=== PATIENT | male | born 1965 | race Caucasian/White ===

== ENCOUNTER 2016-09-29 01:22 | Emergency (ER) | payer OTHER ==
[2016-09-29 01:29] VITALS: BP 175/86; PULSE 89; RESP 18; TEMP 98.5
--- NOTE | 2016-09-29 01:32 | ED ---
ENT HPI - General Chief complaint: Dental/Oral Stated complaint: dental pain Source: patient, RN notes reviewed, old records reviewed Mode of arrival: ambulatory Limitations: no limitations - History of Present Illness Initial comments: Is a 51-year-old male presents emergency Department chief complaint of 19 pain for the past few weeks. Patient reports that his tooth is very loose. Patient reports that he has to see a dentist but is only to be mostly 4-6 weeks. Patient denies any difficulty opening her jaw. Denies any fevers. Patient reports is currently on antibiotics.Patient denies any recent fever, chills, shortness of breath, chest pain, back pain, abdominal pain, nausea vomiting, numbness or tingling, dysuria or hematuria, constipation or diarrhea, headaches or visual changes, or any other current symptoms - Related Data Home Medications Medication Instructions Recorded Confirmed Carisoprodol [Soma] 350 mg PO DAILY 05/04/15 05/04/15 Lisinopril [Zestril] 10 mg PO DAILY 05/04/15 05/04/15 Loratadine [Claritin] 10 mg PO DAILY 05/04/15 05/04/15 Methylphenidate HCl [Ritalin] 20 mg PO DAILY 05/04/15 05/04/15 Previous Rx's Medication Instructions Recorded Hydrocodone/Acetaminophen [Max 1 each PO Q6HR PRN #20 tab 05/04/15 5-325] Orphenadrine [Norflex] 100 mg PO Q12H #10 tablet.er 05/04/15 HYDROcodone/APAP 5-325MG [Max 1 tab PO Q6HR PRN #20 tab 09/29/16 5-325] Allergies Allergy/AdvReac Type Severity Reaction Status Date / Time No Known Allergies Allergy Verified 09/29/16 01:29 Review of Systems ROS Statement: Those systems with pertinent positive or pertinent negative responses have been documented in the HPI. ROS Other: All systems not noted in ROS Statement are negative. Past Medical History Past Medical History: Hypertension Additional Past Medical History / Comment(s): hypercholestremia History of Any Multi-Drug Resistant Organisms: None Reported Additional Past Surgical History / Comment(s): neck surgery, finger surgery Past Psychological History: No Psychological Hx Reported Smoking Status: Current some day smoker Past Alcohol Use History: Occasional Past Drug Use History: Marijuana General Exam - General Exam Comments Initial Comments: Well-appearing 51-year-old male. No acute distress. Limitations: no limitations General appearance: alert, in no apparent distress Head exam: Present: atraumatic, normocephalic, normal inspection Eye exam: Present: normal appearance, PERRL, EOMI. Absent: scleral icterus, conjunctival injection, periorbital swelling ENT exam: Present: normal exam, mucous membranes moist. Absent: normal oropharynx (Patient is significant dental caries. Evidence of loose tooth #19. Evidence of multiple carries around tooth 19. No evidence of abscess at this time.) Neck exam: Present: normal inspection. Absent: tenderness, meningismus, lymphadenopathy Respiratory exam: Present: normal lung sounds bilaterally. Absent: respiratory distress, wheezes, rales, rhonchi, stridor Cardiovascular Exam: Present: regular rate, normal rhythm, normal heart sounds. Absent: systolic murmur, diastolic murmur, rubs, gallop, clicks GI/Abdominal exam: Present: soft, normal bowel sounds. Absent: distended, tenderness, guarding, rebound, rigid Extremities exam: Present: normal inspection, full ROM, normal capillary refill. Absent: tenderness, pedal edema, joint swelling, calf tenderness Back exam: Present: normal inspection Neurological exam: Present: alert, oriented X3, CN II-XII intact Psychiatric exam: Present: normal affect, normal mood Skin exam: Present: warm, dry, intact, normal color. Absent: rash Course Vital Signs 09/29/16 01:26 Temperature 98.5 F Pulse Rate 89 Respiratory 18 Rate Blood Pressure 175/86 O2 Sat by Pulse 97 Oximetry Procedures - Nerve Block Local Anesthetic Used: Marcaine 0.5% Amount of anesthesia used: 5 Side: left Intraoral Nerve Block: inferior alveolar Procedure Successful: Yes Complications: none Patient Tolerated Procedure: well, no complications Medical Decision Making - Medical Decision Making Is a 51-year-old male presents emergency Department chief complaint of 19 pain for the past few weeks. Patient reports that his tooth is very loose. Patient reports that he has to see a dentist but is only to be mostly 4-6 weeks. Patient denies any difficulty opening her jaw. Denies any fevers. Patient was given an inferior alveolar block. Patient tolerated procedure well. Patient has no sign of abscess was high. He is currently on antibiotics. Discuss close follow-up with his dentist and patient was given a referral for other dental clinics. Patient be discharged with pain medication. Disposition Clinical Impression: Pain, dental Disposition: HOME SELF-CARE Condition: Good Instructions: Toothache (ED) Additional Instructions: [facility] [address] [place] [address] [phone] (existing clients only) For new clients: [phone] 1st consult: $50 (includes Xrays) Usually 30% less then private dentist for visits after. [employer] Have to pay $50 for Xrays anmd rest is covered. [phone] Prescriptions: HYDROcodone/APAP 5-325MG [Max 5-325] 1 tab PO Q6HR PRN #20 tab PRN Reason: Pain Referrals: Vincent Jenkins DO [Primary Care Provider] - 1-2 days Time of Disposition: 01:44
[2016-09-29] MEDS ORDERED: BUPIVACAINE (PF) 0.5% 30 ML VIAL SQ STA (01:40)
== END 2016-09-29 02:00 | disposition home or self-care (01) ==
LOC: EC 01:22
DX: K08.89 Other specified disorders of teeth and supporting structures (principal); I10 Essential (primary) hypertension; E78.00 Pure hypercholesterolemia, unspecified; F17.200 Nicotine dependence, unspecified, uncomplicated; Z79.899 Other long term (current) drug therapy
CPT/HCPCS: 64400; 99283

== ENCOUNTER 2017-04-13 14:37 | Emergency (ER) | payer OTHER ==
[2017-04-13 14:51] VITALS: BP 141/84; PULSE 69; RESP 18; TEMP 98.8
--- NOTE | 2017-04-13 15:55 | ED ---
Eye Problem HPI - General Chief complaint: Eye Problems Stated complaint: Eye issues Time Seen by Provider: 04/13/17 15:17 Source: patient Mode of arrival: ambulatory Limitations: no limitations - History of Present Illness Initial comments: 51-year-old male patient presents to the emergency department today for evaluation of a lesion to the right lower eyelid. Patient states that the site has been inflamed for the last month. He states that he has been treated I his doctor both with and topical ointment and an eye drop without relief of symptoms. He states the area seems to be increasing in size, he states it feels like he has something in his eye. He denies any drainage from the site. Denies any fever or chills. States that he does have a little bit of blurred vision however hasn't been wearing his new glasses. He denies any history of similar symptoms. Patient denies any recent rash, shortness breath, chest pain, abdominal pain, nausea, vomiting, diarrhea, constipation, back pain, numbness, tingling, dizziness, weakness, hematuria, dysuria, urinary urgency, urinary frequency, headache, visual changes, or any other complaints. - Related Data Home Medications Medication Instructions Recorded Confirmed Unable To Assess [Unable to Assess] 04/13/17 04/13/17 Allergies Allergy/AdvReac Type Severity Reaction Status Date / Time No Known Allergies Allergy Verified 04/13/17 14:51 Review of Systems ROS Statement: Those systems with pertinent positive or pertinent negative responses have been documented in the HPI. ROS Other: All systems not noted in ROS Statement are negative. Past Medical History Past Medical History: Hypertension Additional Past Medical History / Comment(s): hypercholestremia History of Any Multi-Drug Resistant Organisms: None Reported Past Surgical History: Hernia Repair Additional Past Surgical History / Comment(s): neck surgery, finger surgery Past Psychological History: No Psychological Hx Reported Smoking Status: Current some day smoker Past Alcohol Use History: Occasional Past Drug Use History: Marijuana General Exam Limitations: no limitations General appearance: alert, in no apparent distress, other (This is a well- developed, well-nourished adult male patient in no acute distress. Vital signs upon presentation were temperature 98.8F, pulse 69, respirations 18, blood pressure 141/84, pulse ox 94% on room air.) Eye exam: Present: PERRL, EOMI, other (Right lower lid chalazion, evidence both of internal and external swelling. Orbit is clear with no conjunctival injection. There is no drainage noted from the site. No evidence of periorbital cellulitis.). Absent: normal appearance, scleral icterus, conjunctival injection, nystagmus, periorbital swelling ENT exam: Present: normal exam, normal oropharynx, mucous membranes moist Respiratory exam: Present: normal lung sounds bilaterally. Absent: respiratory distress, wheezes, rales, rhonchi, stridor Cardiovascular Exam: Present: regular rate, normal rhythm, normal heart sounds. Absent: systolic murmur, diastolic murmur, rubs, gallop, clicks Neurological exam: Present: alert, oriented X3, CN II-XII intact Psychiatric exam: Present: normal affect, normal mood Skin exam: Present: warm, dry, intact, normal color. Absent: rash Course Vital Signs 04/13/17 14:49 Temperature 98.8 F Pulse Rate 69 Respiratory 18 Rate Blood Pressure 141/84 O2 Sat by Pulse 94 L Oximetry Medical Decision Making - Medical Decision Making 51-year-old male patient presented to the emergency department today for evaluation of a lesion to the right lower eyelid. Physical examination did reveal a chalazion to the right lower lid. There is evidence of internal and external swelling. No drainage was noted from the site. Patient denied any fevers or chills. No evidence of periorbital cellulitis. Patient be discharged home to follow-up with ophthalmology for further evaluation. He is instructed to apply warm compresses to the site several times daily. He is instructed to continue medications given by his primary care physician. He is instructed to return here immediately for any new, worsening, or concerning symptoms. He verbalizes understanding and agrees with this plan. Disposition Clinical Impression: Chalazion right lower eyelid Disposition: HOME SELF-CARE Condition: Good Instructions: Chalazion (ED) Additional Instructions: Warm compresses several times per day. Continue medications as prescribed by her physician. Follow-up with ophthalmology as soon as possible. Return here immediately for any new, worsening, or concerning symptoms. Referrals: Vincent Jenkins DO [Primary Care Provider] - 1-2 days Mario Gaffney MD [STAFF PHYSICIAN] - 1-2 days Time of Disposition: 15:54
== END 2017-04-13 16:00 | disposition home or self-care (01) ==
LOC: EC 14:37
DX: H00.12 Chalazion right lower eyelid (principal); F17.200 Nicotine dependence, unspecified, uncomplicated
CPT/HCPCS: 99283

== ENCOUNTER 2019-01-05 21:42 | Emergency (ER) | payer OTHER ==
[2019-01-05] MEDS ORDERED: HYDROcodone/APAP 10-325MG 1 EACH TAB PO ONE (22:45)
--- NOTE | 2019-01-05 23:06 | XR ---
EXAMINATION TYPE: XR ankle complete LT DATE OF EXAM: 01/05/2019 COMPARISON: NONE HISTORY: Ankle pain and swelling TECHNIQUE: 3 views FINDINGS: There are plantar and Achilles calcaneal spurs. Ankle mortise is anatomic. There is soft ti ssue swelling around the ankle joint. IMPRESSION: Soft tissue mild swelling. No fracture seen. Calcaneal spurring
--- NOTE | 2019-01-05 23:21 | ED ---
Lower Extremity Injury HPI - General Chief Complaint: Extremity Injury, Lower Stated Complaint: Ankle injury Time Seen by Provider: 01/05/19 22:23 Source: patient Mode of arrival: wheelchair Limitations: no limitations - History of Present Illness Initial Comments: 53-year-old male with history of previous left ankle fracture 20 years ago presenting for evaluation of left ankle pain. Patient states that since he fractured his ankle and was not compliant with his cath 20 years ago he states he has had on-and-off ankle pain that occurs periodically. Patient states the past 2-3 days he has had increasing left ankle pain A note some swelling over the lateral malleolus. Patient states he is tenderness of the ankle joint denies any redness. Patient denies a fever or flulike symptoms. Patient states the pain increases when he walks denies radiation of the pain. Patient denies any calf pain history of DVT or pulmonary embolism. Denies chest pain, denies SOB. Patient denies any known cancer, exogenous hormone use, he denies any recent fractures or direct trauma injury to the ankle. Remaining review system negative. Upon arrival patient appears well no signs of acute distress. - Related Data Home Medications Medication Instructions Recorded Confirmed Unable To Assess [Unable to Assess] 04/13/17 04/13/17 Allergies Allergy/AdvReac Type Severity Reaction Status Date / Time No Known Allergies Allergy Verified 01/05/19 22:21 Review of Systems ROS Statement: Those systems with pertinent positive or pertinent negative responses have been documented in the HPI. ROS Other: All systems not noted in ROS Statement are negative. Past Medical History Past Medical History: Hypertension Additional Past Medical History / Comment(s): hypercholestremia History of Any Multi-Drug Resistant Organisms: None Reported Past Surgical History: Hernia Repair Additional Past Surgical History / Comment(s): neck surgery, finger surgery Past Psychological History: No Psychological Hx Reported Smoking Status: Current some day smoker Past Alcohol Use History: Occasional Past Drug Use History: Marijuana General Exam - General Exam Comments Initial Comments: General: The patient is awake and alert, in no distress, and does not appear acutely ill. Eye: Pupils are equal, round and reactive to light, extra-ocular movements are intact. No nystagmus. There is normal conjunctiva bilaterally. No signs of icterus. Cardiovascular: There is a regular rate and rhythm. No murmur, rub or gallop is appreciated. Respiratory: Lungs are clear to auscultation, respirations are non-labored, breath sounds are equal. No wheezes, stridor, rales, or rhonchi. Musculoskeletal: Normal ROM, with tenderness wtih all ranges of motion of the left ankle. Strength 5/5. Sensation intact. DP pulses equal bilaterally 2+. Neurological: A&O x 3. CN II-XII intact grossly, There are no obvious motor or sensory deficits. Coordination appears grossly intact. Speech is normal. Skin: Skin is warm and dry and no rashes or lesions are noted. Upon inspection of the ankles bilaterally or soft tissue swelling noticed over the lateral malleolus. Feet are warm bilaterally with equal pulses. Capillary refill less than 3 seconds. Negative Homans bilaterally no pedal patient Achilles of the posterior calf. No calf swelling is noted no pitting edema. No redness or warmth to palpation of the ankle mortise. Diffuse tenderness over the ankle mortise Psychiatric: Cooperative, appropriate mood & affect, normal judgment. Limitations: no limitations Course Vital Signs 01/05/19 01/06/19 01/06/19 22: 00:15 02:45 Temperature 98.1 F 98.2 F 98.6 F Pulse Rate 94 85 87 Respiratory 16 18 18 Rate Blood Pressure 136/91 129/87 142/95 O2 Sat by Pulse 97 97 96 Oximetry Medical Decision Making - Medical Decision Making 53-year-old male with history of previous left ankle fracture presenting for swelling and pain in the left ankle. Increasing with ambulation. No redness no clicks symptoms. Afebrile. D-dimer was mildly elevated cannot rule out DVT therefore ultrasound was obtained revealing no deep venous thrombosis. Patient did not have calf pain or swelling. Swelling localized to the lateral malleolus and ankle mortise. Patient does have evidence of spur on plain films no evidence of acute process. At this time I do feel patient is stable for d/c with return parameters as discussed PCP f/u. If symptoms persist I recommended orthopedic evaluation. RICE instruction and importance of rest and elevation for the next 2-3 days were discussed with patient. Patient case discussed with Joseph Garcia and patient was discharged appearing well. - Lab Data Lab Results 01/05/19 Range/Units 23:10 D-Dimer 0.54 (<0.60) mg/L FEU Disposition Clinical Impression: Left ankle pain, Left ankle swelling Disposition: HOME SELF-CARE Condition: Good Instructions (If sedation given, give patient instructions): R.I.C.E. Treatment (ED) Additional Instructions: Please use medication as discussed. Please follow-up with family doctor in the next 2 days and orthopedic surgery in next week. Please return to emergency room if the symptoms increase or worsen or for any other concerns. Is patient prescribed a controlled substance at d/c from ED?: No Referrals: Vincent Jenkins DO [Primary Care Provider] - 1-2 days Raciel Prather MD [Medical Doctor] - 1-2 days Time of Disposition: 02:42
[2019-01-06 00:16] VITALS: RESP 18
[2019-01-06] MEDS ORDERED: KETOROLAC 30 MG/ML 1 ML VIAL IVP STA (01:16)
--- NOTE | 2019-01-06 02:36 | US ---
EXAM: US Duplex Left Lower Extremity Veins CLINICAL HISTORY: ITS.REASON US Reason: elevated dimer. Lower extremity swelling. TECHNIQUE: Real-time duplex ultrasound scan of the left lower extremity veins integrating B-mode two-dimensional vascular structure, Doppler spectral analysis, color flow Doppler imaging and compression. COMPARISON: None. FINDINGS: Deep veins: Imaging of the left lower extremity deep venous system reveals no deep venous thromboses including the left common femoral vein, left superficial femoral vein, the left popliteal vein, and the proximal calf veins. Superficial veins: The greater saphenous vein, and the lesser saphenous vein were also imaged and were patent. No thrombus in the visualized great saphenous vein. Soft tissues: Soft tissues are grossly unremarkable. No popliteal cyst. IMPRESSION: No deep venous thrombosis left lower extremity.
[2019-01-06 03:00] VITALS: BP 142/95; PULSE 87; TEMP 98.6
== END 2019-01-06 02:45 | disposition home or self-care (01) ==
LOC: EC 21:42
DX: M25.572 Pain in left ankle and joints of left foot (principal); M79.89 Other specified soft tissue disorders; R79.1 Abnormal coagulation profile; S99.912A Unspecified injury of left ankle, initial encounter; I10 Essential (primary) hypertension; F17.200 Nicotine dependence, unspecified, uncomplicated; Z87.81 Personal history of (healed) traumatic fracture; X58.XXXA Exposure to other specified factors, initial encounter
CPT/HCPCS: 36415; 85379; 73610; 93971; 96374; 99284; J1885

== ENCOUNTER 2019-03-01 20:27 | Emergency (ER) | payer OTHER ==
[2019-03-01] MEDS ORDERED: HYDROcodone/APAP 5-325MG 1 EACH TAB PO STA (20:50)
[2019-03-01] MEDS ORDERED: MECLIZINE 12.5 MG TAB PO STA (20:50)
--- NOTE | 2019-03-01 21:05 | ED ---
General Adult HPI - General Chief complaint: Head Injury Stated complaint: Head injury Time Seen by Provider: 03/01/19 20:35 Source: patient, RN notes reviewed Mode of arrival: ambulatory Limitations: no limitations - History of Present Illness Initial comments: 53-year-old male with a past medical history of hypertension presents to the emergency department for a chief complaint of head injury. Patient states that about 5 hours prior to arrival he was standing beside a crutch door. States that they cable snapped and the crotch door started to fall and a bracket hit him on the right side of the forehead. States he has had a headache and dizziness since that time. States his vision is a little blurry out of both eyes. Denies any other worsening symptoms. Denies neck pain.Patient has no other complaints at this time including shortness of breath, chest pain, abdominal pain, nausea or vomiting. - Related Data Home Medications Medication Instructions Recorded Confirmed Unable To Assess [Unable to Assess] 04/13/17 04/13/17 Allergies Allergy/AdvReac Type Severity Reaction Status Date / Time No Known Allergies Allergy Verified 03/01/19 20:33 Review of Systems ROS Statement: Those systems with pertinent positive or pertinent negative responses have been documented in the HPI. ROS Other: All systems not noted in ROS Statement are negative. Past Medical History Past Medical History: Hypertension Additional Past Medical History / Comment(s): hypercholestremia History of Any Multi-Drug Resistant Organisms: None Reported Past Surgical History: Hernia Repair Additional Past Surgical History / Comment(s): neck surgery, finger surgery Past Psychological History: No Psychological Hx Reported Smoking Status: Current some day smoker Past Alcohol Use History: Occasional Past Drug Use History: Marijuana General Exam Limitations: no limitations General appearance: alert, in no apparent distress Head exam: Present: normocephalic, normal inspection. Absent: atraumatic (Small contusion noted to the right frontal bone) Eye exam: Present: normal appearance, PERRL, EOMI. Absent: scleral icterus, conjunctival injection, periorbital swelling ENT exam: Present: normal exam, normal oropharynx, mucous membranes moist, TM's normal bilaterally (No evidence for hemotympanum), normal external ear exam Neck exam: Present: normal inspection, full ROM. Absent: tenderness, meningismus, lymphadenopathy Respiratory exam: Present: normal lung sounds bilaterally. Absent: respiratory distress, wheezes, rales, rhonchi, stridor Cardiovascular Exam: Present: regular rate, normal rhythm, normal heart sounds. Absent: systolic murmur, diastolic murmur, rubs, gallop, clicks Neurological exam: Present: alert, oriented X3, CN II-XII intact, normal gait, other (GCS 15) Course Vital Signs 03/01/19 20:28 Temperature 98.4 F Pulse Rate 90 Respiratory 16 Rate Blood Pressure 133/74 O2 Sat by Pulse 95 Oximetry Medical Decision Making - Medical Decision Making CT brain is negative. Previous cervical spine fusion surgery as noted in the CT C-spine however no acute abnormality. Patient likely has a concussion given his headache dizziness and slight blurry vision. Recommended no driving until he follows up with primary care. Recommended Tylenol for pain. Recommended he return to the emergency department if he has any worsening symptoms. Disposition Clinical Impression: Concussion Disposition: HOME SELF-CARE Condition: Good Instructions (If sedation given, give patient instructions): Concussion (ED) Additional Instructions: Please take Tylenol for pain. Do not drive or operate machinery until clearance by primary care. Follow up on Sunday. Try to rest and avoid any other injuries to the head. Return to the emergency department if you have any worsening symptoms. Is patient prescribed a controlled substance at d/c from ED?: No Referrals: Vincent Jenkins DO [Primary Care Provider] - 1-2 days Time of Disposition: 21:41
--- NOTE | 2019-03-01 21:12 | CT ---
EXAMINATION TYPE: CT brain velasquez reynaga DATE OF EXAM: 03/01/2019 COMPARISON: None HISTORY: Head injury, right frontal/temporal. CT DLP: 1536.8 mGycm Automated exposure control for dose reduction was used. TECHNIQUE: CT scan of the head and cervical spine are performed without contrast. FINDINGS: Ventricles have normal size. There is no mass effect nor midline shift. There is no sign of intracranial hemorrhage. The calvarium is intact. Skull base is intact. Cervical vertebra have normal alignment. There is plate with screws fusing anteriorly the cervical sp ine from C4 to C6. There is narrowing of disc spaces from C4 to C6. Posterior elements are intact. Th ere is minor facet arthropathy. There is no evidence of cervical spine fracture. IMPRESSION: Negative CT scan of the brain. Previous cervical spine fusion surgery. No acute abnormality of the cervical spine.
[2019-03-01 21:53] VITALS: BP 128/53; PULSE 101; RESP 17; TEMP 98.8
== END 2019-03-01 21:50 | disposition home or self-care (01) ==
LOC: EC 20:27
DX: S06.0X0A Concussion without loss of consciousness, initial encounter (principal); F17.200 Nicotine dependence, unspecified, uncomplicated; Z98.1 Arthrodesis status; W20.8XXA Other cause of strike by thrown, projected or falling object, initial encounter; Y93.89 Activity, other specified
CPT/HCPCS: 70450; 72125; 99283

== ENCOUNTER 2019-09-26 15:53 | Emergency (ER) | payer OTHER ==
[2019-09-26 16:15] VITALS: BP 137/89; PULSE 93; RESP 18; TEMP 98
--- NOTE | 2019-09-26 17:13 | ED ---
Upper Extremity HPI - General Chief Complaint: Extremity Injury, Upper Stated Complaint: right elbow swelling Time Seen by Provider: 09/26/19 16:22 Source: patient Mode of arrival: ambulatory Limitations: no limitations - History of Present Illness Initial Comments: Patient is a 54-year-old male presenting to the emergency Department with complaints of right elbow and upper arm pain x 1 week. Patient states last weekend he was in [place] and was chasing his grandson when he fell and his arm hit a rock. Patient states he had a severe amount of pain after the incident. He has not seen for this injury. Patient denies hitting his head or any other injuries from this fall. Patient states he has had been having a hard time straightening and bending his elbow. He's had significant bruising to the area which has improved at this time. Patient states he is worried that he may have fractured a bone in his elbow and wanted to be seen today. He denies any other complaints at this time. Upon arrival to the ER his vitals are stable. - Related Data Home Medications Medication Instructions Recorded Confirmed Unable To Assess [Unable to Assess] 04/13/17 04/13/17 Allergies Allergy/AdvReac Type Severity Reaction Status Date / Time No Known Allergies Allergy Verified 09/26/19 16:14 Review of Systems ROS Statement: Those systems with pertinent positive or pertinent negative responses have been documented in the HPI. ROS Other: All systems not noted in ROS Statement are negative. Past Medical History Past Medical History: Hypertension Additional Past Medical History / Comment(s): hypercholestremia History of Any Multi-Drug Resistant Organisms: None Reported Past Surgical History: Hernia Repair Additional Past Surgical History / Comment(s): neck surgery, finger surgery Past Psychological History: Anxiety Smoking Status: Current every day smoker Past Alcohol Use History: Occasional Past Drug Use History: Marijuana General Exam - General Exam Comments Initial Comments: GENERAL: Well-appearing, well-nourished and in no acute distress. HEAD: Atraumatic, normocephalic. EYES: Pupils equal round and reactive to light, extraocular movements intact, sclera anicteric, conjunctiva are normal. ENT: TMs normal, nares patent, oropharynx clear without exudates. Moist mucous membranes. NECK: Normal range of motion, supple without lymphadenopathy or JVD. LUNGS: Breath sounds clear to auscultation bilaterally and equal. No wheezes rales or rhonchi. HEART: Regular rate and rhythm without murmurs, rubs or gallops. ABDOMEN: Soft, nontender, normoactive bowel sounds. No guarding, no rebound. No masses appreciated. : Deferred EXTREMITIES: Patient has pain with full elbow flexion as well as extension. He does have some swelling around the right elbow and extending up to the right humerus. He is neurovascular intact. Patient has bruising of the medial aspect of the right elbow extending up towards the distal end of the right humerus. No pain with palpation of the right wrist, fingers, shoulder. There is a slight deformity of the distal bicep muscle. Bicep tendons appears to be intact. No clubbing or cyanosis. NEUROLOGICAL: Normal speech, normal gait. PSYCH: Normal mood, normal affect. SKIN: Warm, Dry, normal turgor, no rashes or lesions noted. Limitations: no limitations Course Vital Signs 09/26/19 16:11 Temperature 98.0 F Pulse Rate 93 Respiratory 18 Rate Blood Pressure 137/89 O2 Sat by Pulse 97 Oximetry Medical Decision Making - Medical Decision Making Patient is a 54-year-old male here with complaints of right elbow and right humerus pain x 1week after a fall. He denies being on blood thinners. No other injuries from this fall. X-rays of the right elbow and humerus show no signs of fracture or dislocation. I discussed this with the patient. This is most likely a hyperextension injury to the right elbow with also a possible slight tear of the biceps muscle. He can continue with heat and/or ice the area as well as ibuprofen for discomfort. I did give him orthopedic referral if symptoms persist greater than 2-3 weeks. He is in agreement with this plan of care. He is stable for discharge at this time. Disposition Clinical Impression: Hyperextension injury of right elbow, Contusion of right elbow, Fall Disposition: HOME SELF-CARE Condition: Stable Instructions (If sedation given, give patient instructions): Elbow Sprain (ED) Additional Instructions: Please return to the Emergency Department if symptoms worsen or any other concer ns. Continue with ice, heat, gentle range of motion. Follow up with orthopedics if symptoms do not improve within 2-3 weeks. Is patient prescribed a controlled substance at d/c from ED?: No Referrals: Vincent Jenkins DO [Primary Care Provider] - 1-2 days Genaro Feng MD [STAFF PHYSICIAN] - 1-2 days
--- NOTE | 2019-09-26 17:30 | XR ---
EXAMINATION TYPE: XR humerus RT DATE OF EXAM: 09/26/2019 COMPARISON: NONE HISTORY: Elbow pain and swelling TECHNIQUE: 2 views FINDINGS: There is no sign of fracture nor dislocation. Shoulder joint and elbow joint appear intact. There is no sign of elbow joint effusion. IMPRESSION: Negative right humerus exam.
--- NOTE | 2019-09-26 17:32 | XR ---
EXAMINATION TYPE: XR elbow complete RT DATE OF EXAM: 09/26/2019 COMPARISON: NONE HISTORY: Pain and swelling TECHNIQUE: 3 views FINDINGS: Joint spaces are normal. I see no fracture nor dislocation. There is no sign of joint effus ion. There is 4 mm rounded calcification at the lateral humeral condyle consistent with old injury. IMPRESSION: Negative right elbow exam.
== END 2019-09-26 18:11 | disposition home or self-care (01) ==
LOC: EC 15:53
DX: S50.01XA Contusion of right elbow, initial encounter (principal); F17.200 Nicotine dependence, unspecified, uncomplicated; W01.198A Fall on same level from slipping, tripping and stumbling with subsequent striking against other object, initial encounter; Y93.02 Activity, running
CPT/HCPCS: 99283

== ENCOUNTER 2021-03-19 18:48 | Emergency (ER) | payer OTHER ==
--- NOTE | 2021-03-19 20:18 | ED ---
General Adult HPI <Ilana Colin - Last Filed: 03/19/21 20:16> - History of Present Illness -: days(s) Improves with: none Worsens with: movement Associated Symptoms: loss of appetite, malaise, nausea/vomiting, weakness Treatments Prior to Arrival: none <Prashanth Paredes - Last Filed: 03/20/21 01:09> - General Stated complaint: Blood Sugar Problems Time Seen by Provider: 03/19/21 20:16 - History of Present Illness Initial comments: Seen for ATP purposes: 55 year-old male patient presents for evaluation for elevated blood sugars. Patient was recently diagnosed and started on metformin. States that he went to urgent care because he has had increase thirst, frequent urination, nausea, and weakness. Blood sugar at urgent care read high. States he has been feeling dizzy. (Ilana Colin) This is a 55-year-old male DF for evaluation is presenting for a for elevated blood sugar recently started on metformin. His been increasing in his thirst increasing in his urination and just now feeling that dizzy and weak. No other complaints no fevers. (Prashanth Paredes) - Related Data Home Medications Medication Instructions Recorded Confirmed No Known Home Medications 03/19/21 03/19/21 Allergies Allergy/AdvReac Type Severity Reaction Status Date / Time No Known Allergies Allergy Verified 03/19/21 23:16 Review of Systems ROS Other: All systems not noted in ROS Statement are negative. <Ilana Colin - Last Filed: 03/19/21 20:16> ROS Other: All systems not noted in ROS Statement are negative. <Prashanth Paredes - Last Filed: 03/20/21 01:09> ROS Statement: Those systems with pertinent positive or pertinent negative responses have been documented in the HPI. Past Medical History Past Medical History: Hypertension Additional Past Medical History / Comment(s): hypercholestremia History of Any Multi-Drug Resistant Organisms: None Reported Past Surgical History: Hernia Repair Additional Past Surgical History / Comment(s): neck surgery, finger surgery Past Psychological History: Anxiety Past Alcohol Use History: Occasional Past Drug Use History: Marijuana <Ilana Colin - Last Filed: 03/19/21 20:16> General Exam General appearance: alert, in no apparent distress Head exam: Present: atraumatic, normocephalic, normal inspection Eye exam: Present: normal appearance, PERRL, EOMI. Absent: scleral icterus, conjunctival injection, periorbital swelling ENT exam: Present: normal exam, mucous membranes moist Neck exam: Present: normal inspection. Absent: tenderness, meningismus, lymphadenopathy Respiratory exam: Present: normal lung sounds bilaterally. Absent: respiratory distress, wheezes, rales, rhonchi, stridor Cardiovascular Exam: Present: regular rate, normal rhythm, normal heart sounds. Absent: systolic murmur, diastolic murmur, rubs, gallop, clicks GI/Abdominal exam: Present: soft, normal bowel sounds. Absent: distended, tenderness, guarding, rebound, rigid Extremities exam: Present: normal inspection, full ROM, normal capillary refill. Absent: tenderness, pedal edema, joint swelling, calf tenderness Back exam: Present: normal inspection Neurological exam: Present: alert, oriented X3, CN II-XII intact Psychiatric exam: Present: normal affect, normal mood Skin exam: Present: warm, dry, intact, normal color. Absent: rash <Prashanth Paredes - Last Filed: 03/20/21 01:09> Course <Prashanth Paredes - Last Filed: 03/20/21 01:09> Vital Signs 03/19/21 03/19/21 20:13 22:48 Temperature 98.8 F Pulse Rate 87 89 Respiratory 22 18 Rate Blood Pressure 149/82 108/80 O2 Sat by Pulse 94 L 96 Oximetry - Reevaluation(s) Reevaluation #1: 03/20/21 01:09 Medical record is reviewed (Prashanth Paredes) Reevaluation #2: 03/20/21 01:09 Patient encouraged to double metformin dose and increase water intake (Prashanth Paredes) Medical Decision Making - Lab Data Result diagrams: 03/19/21 20:27 03/19/21 20:27 <Prashanth Paredes - Last Filed: 03/20/21 01:09> - Medical Decision Making 55 male of new onset diabetes patient now has adequate blood sugar control, increase water intake double metformin dose and patient will be discharged home (Prashanth Paredes) - Lab Data Lab Results 03/19/21 03/19/21 03/19/21 Range/Units 20:17 20:27 20:27 WBC 13.9 H (3.8-10.6) k/uL RBC 5.11 (4.30-5.90) m/uL Hgb 15.0 (13.0-17.5) gm/dL Hct 41.5 (39.0-53.0) % MCV 81.2 (80.0-100.0) fL MCH 29.4 (25.0-35.0) pg MCHC 36.2 (31.0-37.0) g/dL RDW 12.8 (11.5-15.5) % Plt Count 215 (150-450) k/uL MPV 8.0 Neutrophils % 75 % Lymphocytes % 18 % Monocytes % 3 % Eosinophils % 2 % Basophils % 0 % Neutrophils # 10.5 H (1.3-7.7) k/uL Lymphocytes # 2.5 (1.0-4.8) k/uL Monocytes # 0.5 (0-1.0) k/uL Eosinophils # 0.2 (0-0.7) k/uL Basophils # 0.0 (0-0.2) k/uL Sodium (137-145) mmol/L Potassium (3.5-5.1) mmol/L Chloride (98-107) mmol/L Carbon Dioxide (22-30) mmol/L Anion Gap mmol/L BUN (9-20) mg/dL Creatinine (0.66-1.25) mg/dL Est GFR (CKD-EPI)AfAm (>60 ml/min/1.73 sqM) Est GFR (CKD-EPI)NonAf (>60 ml/min/1.73 sqM) Glucose (74-99) mg/dL POC Glucose (mg/dL) 534 H (75-99) mg/dL POC Glu Physician Primary Care Sports Medicine ID Richard Perez Calcium (8.4-10.2) mg/dL Total Bilirubin (0.2-1.3) mg/dL AST (17-59) U/L ALT (4-49) U/L Alkaline Phosphatase (38-126) U/L Total Protein (6.3-8.2) g/dL Albumin (3.5-5.0) g/dL Urine Color Light Yellow Urine Appearance Clear (Clear) Urine pH 5.5 (5.0-8.0) Ur Specific [place] 1.036 H (1.001-1.035) Urine Protein Negative (Negative) Urine Glucose (UA) 4+ H (Negative) Urine Ketones 2+ H (Negative) Urine Blood Negative (Negative) Urine Nitrite Negative (Negative) Urine Bilirubin Negative (Negative) Urine Urobilinogen <2.0 (<2.0) mg/dL Ur Leukocyte Esterase Negative (Negative) Acetone, Qual (Negative) 03/19/21 03/19/21 Range/Units 20:27 22:47 WBC (3.8-10.6) k/uL RBC (4.30-5.90) m/uL Hgb (13.0-17.5) gm/dL Hct (39.0-53.0) % MCV (80.0-100.0) fL MCH (25.0-35.0) pg MCHC (31.0-37.0) g/dL RDW (11.5-15.5) % Plt Count (150-450) k/uL MPV Neutrophils % % Lymphocytes % % Monocytes % % Eosinophils % % Basophils % % Neutrophils # (1.3-7.7) k/uL Lymphocytes # (1.0-4.8) k/uL Monocytes # (0-1.0) k/uL Eosinophils # (0-0.7) k/uL Basophils # (0-0.2) k/uL Sodium 123 L (137-145) mmol/L Potassium 4.0 (3.5-5.1) mmol/L Chloride 93 L (98-107) mmol/L Carbon Dioxide 16 L (22-30) mmol/L Anion Gap 14 mmol/L BUN 16 (9-20) mg/dL Creatinine 0.77 (0.66-1.25) mg/dL Est GFR (CKD-EPI)AfAm >90 (>60 ml/min/1.73 sqM) Est GFR (CKD-EPI)NonAf >90 (>60 ml/min/1.73 sqM) Glucose 490 H (74-99) mg/dL POC Glucose (mg/dL) 433 H (75-99) mg/dL POC Glu Physician Primary Care Sports Medicine ID Last Abernathy Calcium 8.8 (8.4-10.2) mg/dL Total Bilirubin 1.0 (0.2-1.3) mg/dL AST 45 (17-59) U/L ALT 42 (4-49) U/L Alkaline Phosphatase 117 (38-126) U/L Total Protein 7.0 (6.3-8.2) g/dL Albumin 3.8 (3.5-5.0) g/dL Urine Color Urine Appearance (Clear) Urine pH (5.0-8.0) Ur Specific [place] (1.001-1.035) Urine Protein (Negative) Urine Glucose (UA) (Negative) Urine Ketones (Negative) Urine Blood (Negative) Urine Nitrite (Negative) Urine Bilirubin (Negative) Urine Urobilinogen (<2.0) mg/dL Ur Leukocyte Esterase (Negative) Acetone, Qual Positive (Negative) Disposition <Ilana Colin - Last Filed: 03/19/21 20:16> Is patient prescribed a controlled substance at d/c from ED?: No <Prashanth Paredes - Last Filed: 03/20/21 01:09> Clinical Impression: Hyperglycemia, Weakness, Dehydration Disposition: HOME SELF-CARE Condition: Fair Instructions (If sedation given, give patient instructions): Diabetic Hyperglycemia (ED) Referrals: Vincent Jenkins DO [Primary Care Provider] - 1-2 days
[2021-03-19 20:28] LABS: Glucose,Whole Blood 534 mg/dL (75-99)
[2021-03-19 20:40] LABS: Basophils % (A) 0 %; Eosinophils # (A) 0.2 k/uL (0-0.7); Eosinophils % (A) 2 %; HCT 41.5 % (39.0-53.0); Lymphocytes # (A) 2.5 k/uL (1.0-4.8); Lymphocytes % (A) 18 %; MCH 29.4 pg (25.0-35.0); MCHC 36.2 g/dL (31.0-37.0); MCV 81.2 fL (80.0-100.0); Monocytes # (A) 0.5 k/uL (0-1.0); Monocytes % (A) 3 %; Neutrophils # (A) 10.5 k/uL (1.3-7.7); Neutrophils % (A) 75 %; Platelet Count 215 k/uL (150-450); RBC 5.11 m/uL (4.30-5.90); RDW 12.8 % (11.5-15.5); WBC 13.9 k/uL (3.8-10.6)
[2021-03-19 20:58] LABS: ALT 42 U/L (4-49); AST 45 U/L (17-59); African American GFR (CKD) >90 (>60 ml/min/1.73 sqM); Albumin 3.8 g/dL (3.5-5.0); Alkaline Phosphatase 117 U/L (38-126); Anion Gap 14 mmol/L; Blood Urea Nitrogen 16 mg/dL (9-20); Calcium 8.8 mg/dL (8.4-10.2); Carbon Dioxide 16 mmol/L (22-30); Chloride 93 mmol/L (98-107); Glucose 490 mg/dL (74-99); Non-African American GFR(CKD) >90 (>60 ml/min/1.73 sqM); Sodium 123 mmol/L (137-145)
[2021-03-19 22:16] LABS: Appearance,Urine Clear (Clear); Bilirubin,Urine Negative (Negative); Blood,Urine Negative (Negative); Color,Urine Light Yellow; Glucose,Urine (UA) 4+ (Negative); Leukocyte Esterase,Urine Negative (Negative); Nitrite,Urine Negative (Negative); PH, Urine 5.5 (5.0-8.0); Protein,Urine Negative (Negative); Specific Gravity,Urine 1.036 (1.001-1.035); Urobilinogen,Urine <2.0 mg/dL (<2.0)
[2021-03-19] MEDS ORDERED: ONDANSETRON 4 MG/2 ML VIAL IVP PRN (22:23)
[2021-03-19] MEDS ORDERED: AMPICILLIN-SULBACTAM 3 GM in SODIUM CHLORIDE 0.9% 100 ML IVPB STA (22:23)
[2021-03-19] MEDS ORDERED: ONDANSETRON 4 MG/2 ML VIAL IVP STA (22:23)
[2021-03-19] MEDS ORDERED: SODIUM CHLORIDE 0.9% 500 ML 500 ML IV STA (22:23)
[2021-03-19] MEDS ORDERED: SODIUM CHLORIDE 0.9% 1,000 ML IV STA (22:23)
[2021-03-19] MEDS ORDERED: SODIUM CHLORIDE 0.9% 1,000 ML IV SCH (22:30)
[2021-03-19 22:34] LABS: Ketones,Urine 2+ (Negative)
[2021-03-19 22:53] VITALS: RESP 18
[2021-03-19 22:57] LABS: Glucose,Whole Blood 433 mg/dL (75-99)
[2021-03-20] MEDS ORDERED: INSULIN REGULAR 100 UNIT/ML VIAL (IV) IV STA (00:24)
[2021-03-20] MEDS ORDERED: POLYMYXIN B-TRIMETHOPRIM SULF (10,000-1) OPHTH DROPS 10 ML BTL LEFT EYE STA (00:39)
[2021-03-20 01:52] LABS: Glucose,Whole Blood 312 mg/dL (75-99)
[2021-03-20 02:48] LABS: Glucose,Whole Blood 159 mg/dL (75-99)
[2021-03-20] MEDS ORDERED: metFORMIN 500 MG TAB PO STA (03:59)
[2021-03-20 04:42] VITALS: BP 125/77; PULSE 84; TEMP 97.8
[2021-03-20 04:50] LABS: Glucose,Whole Blood 208 mg/dL (75-99)
[2021-03-20] MEDS ORDERED: AMPICILLIN-SULBACTAM 3 GM in SODIUM CHLORIDE 0.9% 100 ML IVPB SCH (23:00)
== END 2021-03-20 04:48 | disposition home or self-care (01) ==
LOC: EC 18:48
DX: R73.9 Hyperglycemia, unspecified (principal); R53.1 Weakness; E86.0 Dehydration; I10 Essential (primary) hypertension; F41.9 Anxiety disorder, unspecified; F12.90 Cannabis use, unspecified, uncomplicated
CPT/HCPCS: 99285; 96365; 96375; 96361 ×5; 36415 ×2; 93005; 80053; 82009; 85025; 81003; J2405; J0295

== ENCOUNTER 2021-03-28 22:46 | Emergency (ER) | payer OTHER ==
[2021-03-28 22:53] VITALS: RESP 18
--- NOTE | 2021-03-29 00:08 | ED ---
URI HPI - General Chief Complaint: Upper Respiratory Infection Stated Complaint: Covid+ wants antibodies Time Seen by Provider: 03/28/21 22:58 Source: patient Mode of arrival: ambulatory Limitations: no limitations - History of Present Illness MD Complaint: fever, cough, nasal congestion Onset/Timin -: days(s) Consistency: constant Improves With: nothing Worsens With: nothing Context: sick contacts Associated Symptoms: fever, headache, nasal congestion, cough Treatments Prior to Arrival: Acetaminophen - Related Data Home Medications Medication Instructions Recorded Confirmed Acetaminophen Tab [Tylenol Tab] 1,000 mg PO Q6HR PRN 03/28/21 03/28/21 Previous Rx's Medication Instructions Recorded metFORMIN HCL [Glucophage] 500 mg PO BID #60 tab 03/20/21 Allergies Allergy/AdvReac Type Severity Reaction Status Date / Time No Known Allergies Allergy Verified 03/28/21 23:12 Review of Systems ROS Statement: Those systems with pertinent positive or pertinent negative responses have been documented in the HPI. ROS Other: All systems not noted in ROS Statement are negative. Constitutional: Reports: fever, weakness. Denies: chills Respiratory: Reports: cough. Denies: dyspnea, wheezes Cardiovascular: Denies: chest pain, palpitations, edema Endocrine: Reports: fatigue Gastrointestinal: Denies: abdominal pain, nausea, vomiting, diarrhea Genitourinary: Denies: dysuria, hematuria Skin: Denies: rash Neurological: Reports: headache. Denies: weakness Past Medical History Past Medical History: Diabetes Mellitus, Hypertension Additional Past Medical History / Comment(s): hypercholestremia History of Any Multi-Drug Resistant Organisms: None Reported Past Surgical History: Hernia Repair Additional Past Surgical History / Comment(s): neck surgery, finger surgery Past Psychological History: Anxiety Smoking Status: Never smoker Past Alcohol Use History: Occasional Past Drug Use History: Marijuana General Exam Limitations: no limitations General appearance: alert, in no apparent distress Head exam: Present: atraumatic, normocephalic Eye exam: Present: normal appearance. Absent: scleral icterus, conjunctival in jection Respiratory exam: Present: normal lung sounds bilaterally. Absent: respiratory distress, wheezes, rales, rhonchi, stridor Cardiovascular Exam: Present: regular rate, normal rhythm, normal heart sounds. Absent: systolic murmur, diastolic murmur, rubs, gallop GI/Abdominal exam: Present: soft. Absent: distended, tenderness, guarding, rebound, rigid, mass Extremities exam: Present: normal inspection, normal capillary refill. Absent: pedal edema, calf tenderness Back exam: Present: normal inspection. Absent: CVA tenderness (R), CVA tenderness (L) Neurological exam: Present: alert Skin exam: Present: warm, dry, intact, normal color. Absent: rash Course Vital Signs 03/28/21 03/29/21 03/29/21 22:49 00:04 02:00 Temperature 98.4 F Pulse Rate 90 81 75 Respiratory 18 18 18 Rate Blood Pressure 124/79 117/81 103/79 O2 Sat by Pulse 96 95 96 Oximetry 03/29/21 03:29 Temperature 98.7 F Pulse Rate 83 Respiratory 18 Rate Blood Pressure 130/95 O2 Sat by Pulse 98 Oximetry Medical Decision Making - Lab Data Result diagrams: 03/29/21 00:22 03/29/21 00:23 Lab Results 03/28/21 03/29/21 03/29/21 Range/Units 22:55 00:20 00:22 WBC 7.7 (3.8-10.6) k/uL RBC 5.39 (4.30-5.90) m/uL Hgb 15.7 (13.0-17.5) gm/dL Hct 46.1 (39.0-53.0) % MCV 85.4 (80.0-100.0) fL MCH 29.1 (25.0-35.0) pg MCHC 34.1 (31.0-37.0) g/dL RDW 12.8 (11.5-15.5) % Plt Count 239 (150-450) k/uL MPV 7.9 Neutrophils % 63 % Lymphocytes % 26 % Monocytes % 6 % Eosinophils % 2 % Basophils % 1 % Neutrophils # 4.9 (1.3-7.7) k/uL Lymphocytes # 2.0 (1.0-4.8) k/uL Monocytes # 0.5 (0-1.0) k/uL Eosinophils # 0.2 (0-0.7) k/uL Basophils # 0.1 (0-0.2) k/uL Sodium (137-145) mmol/L Potassium (3.5-5.1) mmol/L Chloride (98-107) mmol/L Carbon Dioxide (22-30) mmol/L Anion Gap mmol/L BUN (9-20) mg/dL Creatinine (0.66-1.25) mg/dL Est GFR (CKD-EPI)AfAm (>60 ml/min/1.73 sqM) Est GFR (CKD-EPI)NonAf (>60 ml/min/1.73 sqM) Glucose (74-99) mg/dL POC Glucose (mg/dL) 381 H (75-99) mg/dL POC Glu Machine Gun Mechanic ID Cony Marrero Calcium (8.4-10.2) mg/dL Acetone, Qual (Negative) Coronavirus (PCR) Detected A (Not Detectd) 03/29/21 03/29/21 Range/Units 00:23 03:12 WBC (3.8-10.6) k/uL RBC (4.30-5.90) m/uL Hgb (13.0-17.5) gm/dL Hct (39.0-53.0) % MCV (80.0-100.0) fL MCH (25.0-35.0) pg MCHC (31.0-37.0) g/dL RDW (11.5-15.5) % Plt Count (150-450) k/uL MPV Neutrophils % % Lymphocytes % % Monocytes % % Eosinophils % % Basophils % % Neutrophils # (1.3-7.7) k/uL Lymphocytes # (1.0-4.8) k/uL Monocytes # (0-1.0) k/uL Eosinophils # (0-0.7) k/uL Basophils # (0-0.2) k/uL Sodium 130 L (137-145) mmol/L Potassium 4.3 (3.5-5.1) mmol/L Chloride 97 L (98-107) mmol/L Carbon Dioxide 22 (22-30) mmol/L Anion Gap 11 mmol/L BUN 16 (9-20) mg/dL Creatinine 0.72 (0.66-1.25) mg/dL Est GFR (CKD-EPI)AfAm >90 (>60 ml/min/1.73 sqM) Est GFR (CKD-EPI)NonAf >90 (>60 ml/min/1.73 sqM) Glucose 390 H (74-99) mg/dL POC Glucose (mg/dL) 421 H (75-99) mg/dL POC Glu Machine Gun Mechanic ID Malvin Hernandez Calcium 9.6 (8.4-10.2) mg/dL Acetone, Qual Positive (Negative) Coronavirus (PCR) (Not Detectd) Disposition Clinical Impression: COVID-19, Hyperglycemia due to type 2 diabetes mellitus Disposition: HOME SELF-CARE Condition: Good Instructions (If sedation given, give patient instructions): Coronavirus Disease 2019 (COVID-19) Is patient prescribed a controlled substance at d/c from ED?: No Referrals: Vincent Jenkins DO [Primary Care Provider] - 1-2 days Wendi Johnson MD [REFERRING] - 1-2 days
[2021-03-29 00:23] LABS: Glucose,Whole Blood 381 mg/dL (75-99)
[2021-03-29 00:32] LABS: Basophils # (A) 0.1 k/uL (0-0.2); Basophils % (A) 1 %; Eosinophils # (A) 0.2 k/uL (0-0.7); Eosinophils % (A) 2 %; HCT 46.1 % (39.0-53.0); HGB 15.7 gm/dL (13.0-17.5); Lymphocytes % (A) 26 %; MCH 29.1 pg (25.0-35.0); MCHC 34.1 g/dL (31.0-37.0); MCV 85.4 fL (80.0-100.0); Mean Platelet Volume 7.9; Monocytes # (A) 0.5 k/uL (0-1.0); Monocytes % (A) 6 %; Neutrophils # (A) 4.9 k/uL (1.3-7.7); Neutrophils % (A) 63 %; Platelet Count 239 k/uL (150-450); RBC 5.39 m/uL (4.30-5.90); RDW 12.8 % (11.5-15.5); WBC 7.7 k/uL (3.8-10.6)
[2021-03-29 00:44] LABS: Potassium 4.3 mmol/L (3.5-5.1)
[2021-03-29 00:47] LABS: African American GFR (CKD) >90 (>60 ml/min/1.73 sqM); Anion Gap 11 mmol/L; Blood Urea Nitrogen 16 mg/dL (9-20); Calcium 9.6 mg/dL (8.4-10.2); Carbon Dioxide 22 mmol/L (22-30); Chloride 97 mmol/L (98-107); Glucose 390 mg/dL (74-99); Non-African American GFR(CKD) >90 (>60 ml/min/1.73 sqM); Sodium 130 mmol/L (137-145)
[2021-03-29] MEDS ORDERED: SODIUM CHLORIDE 0.9% 50 ML IVPB ONE (01:00)
[2021-03-29] MEDS ORDERED: BAMLANIVIMAB (EUA) 700 MG, ETESEVIMAB (EUA) 1,400 MG in SODIUM CHLORIDE 0.9% 50 ML IVPB ONE (01:00)
[2021-03-29] MEDS ORDERED: INSULIN REGULAR 100 UNIT/ML VIAL (IV) SQ STA (03:03)
[2021-03-29] MEDS ORDERED: INSULIN ASPART (NovoLOG) 100 UNIT/ML VIAL SQ ONE (03:09)
[2021-03-29 03:14] LABS: Glucose,Whole Blood 421 mg/dL (75-99)
[2021-03-29] MEDS ORDERED: SODIUM CHLORIDE 0.9% 2,000 ML IV ONE (03:21)
[2021-03-29 03:30] VITALS: PULSE 83
[2021-03-29 04:41] LABS: Glucose,Whole Blood 281 mg/dL (75-99)
[2021-03-29 04:54] VITALS: BP 129/82; TEMP 98.4
== END 2021-03-29 04:45 | disposition home or self-care (01) ==
LOC: EC 22:46
DX: U07.1 COVID-19 (principal); E11.65 Type 2 diabetes mellitus with hyperglycemia; I10 Essential (primary) hypertension; F12.90 Cannabis use, unspecified, uncomplicated; Z79.84 Long term (current) use of oral hypoglycemic drugs
CPT/HCPCS: 36415; 80048; 82009; 85025; 87635; 99283; 96360; J3490

== ENCOUNTER 2021-07-26 14:47 | Emergency (ER) | payer OTHER ==
[2021-07-26 15:43] VITALS: TEMP 98.1
[2021-07-26 15:45] LABS: Glucose,Whole Blood 104 mg/dL (75-99)
[2021-07-26] MEDS ORDERED: KETOROLAC 15 MG/ML 1 ML VIAL IM STA (16:06)
[2021-07-26] MEDS ORDERED: HYDROcodone/APAP 5-325MG 1 EACH TAB PO STA (16:06)
--- NOTE | 2021-07-26 16:34 | XR ---
EXAMINATION TYPE: XR ankle complete RT DATE OF EXAM: 07/26/2021 CLINICAL HISTORY: Pain for 2 days. TECHNIQUE: Frontal, lateral and oblique images of the right ankle are obtained. COMPARISON: Right ankle x-ray June 17, 2014 FINDINGS: There is no acute fracture/dislocation evident in the right ankle. The ankle mortise appe ars within normal limits. The overlying soft tissue appears unremarkable. IMPRESSION: Unremarkable study. No significant change from prior.
--- NOTE | 2021-07-26 17:03 | US ---
EXAMINATION TYPE: US venous doppler duplex LE RT DATE OF EXAM: 07/26/2021 4:56 PM COMPARISON: NONE CLINICAL HISTORY: pain. pain in foot and back, no swelling, no h/o dvt SIDE PERFORMED: Right TECHNIQUE: The lower extremity deep venous system is examined utilizing real time linear array sonog lorena with graded compression, doppler sonography and color-flow sonography. VESSELS IMAGED: Common Femoral Vein Deep Femoral Vein Greater Saphenous Vein * Femoral Vein Popliteal Vein Small Saphenous Vein * Proximal Calf Veins (* superficial vessels) Right Leg: Negative for DVT IMPRESSION: No evidence of deep vein thrombosis in the right leg.
[2021-07-26 17:34] VITALS: BP 135/67; PULSE 75; RESP 16
--- NOTE | 2021-07-26 17:52 | ED ---
Lower Extremity Injury HPI - General Chief Complaint: Extremity Injury, Lower Stated Complaint: Right Ankle Pain Time Seen by Provider: 07/26/21 15:49 Source: patient Mode of arrival: wheelchair - History of Present Illness Initial Comments: Patient complains of an injury to the right lower charming. He has pain in the ankle. He feels like the pain radiates to the calf. He has some swelling. He has no paresthesias. He has no weakness. He has been able to walk. He has no loss of bowel or bladder continence and no urinary retention. - Related Data Home Medications Medication Instructions Recorded Confirmed No Known Home Medications 07/26/21 07/26/21 Allergies Allergy/AdvReac Type Severity Reaction Status Date / Time No Known Allergies Allergy Verified 07/26/21 16:09 Review of Systems ROS Statement: Those systems with pertinent positive or pertinent negative responses have been documented in the HPI. ROS Other: All systems not noted in ROS Statement are negative. Past Medical History Past Medical History: Diabetes Mellitus, Hypertension Additional Past Medical History / Comment(s): hypercholestremia History of Any Multi-Drug Resistant Organisms: None Reported Past Surgical History: Hernia Repair Additional Past Surgical History / Comment(s): neck surgery, finger surgery Past Psychological History: Anxiety Smoking Status: Never smoker Past Alcohol Use History: Occasional Past Drug Use History: Marijuana General Exam General appearance: alert, in no apparent distress Head exam: Present: atraumatic, normocephalic, normal inspection Eye exam: Present: normal appearance, PERRL, EOMI. Absent: scleral icterus, conjunctival injection, periorbital swelling ENT exam: Present: normal exam, mucous membranes moist Neck exam: Present: normal inspection. Absent: tenderness, meningismus, lymphadenopathy Respiratory exam: Present: normal lung sounds bilaterally. Absent: respiratory distress, wheezes, rales, rhonchi, stridor Cardiovascular Exam: Present: regular rate, normal rhythm, normal heart sounds. Absent: systolic murmur, diastolic murmur, rubs, gallop, clicks GI/Abdominal exam: Present: soft, normal bowel sounds. Absent: distended, tenderness, guarding, rebound, rigid Extremities exam: Present: normal inspection, full ROM, tenderness, normal capillary refill, calf tenderness. Absent: pedal edema, joint swelling Back exam: Present: normal inspection Neurological exam: Present: alert, oriented X3, CN II-XII intact Psychiatric exam: Present: normal affect, normal mood Skin exam: Present: warm, dry, intact, normal color. Absent: rash Course Vital Signs 07/26/21 07/26/21 15:37 17:33 Temperature 98.1 F 98.1 F Pulse Rate 72 75 Respiratory 18 16 Rate Blood Pressure 129/86 135/67 O2 Sat by Pulse 98 97 Oximetry Medical Decision Making - Medical Decision Making Patient presents with right lower extremity pain. My examination he has excellent distal pulses, no evidence of infection and no focal weakness. X-rays negative. Duplex is negative. There is no evidence of any acute emergency. He is stable for discharge. - Lab Data Lab Results 07/26/21 Range/Units 15:42 POC Glucose (mg/dL) 104 H (75-99) mg/dL POC Glu Insulation Board Head Saw Operator ID Marcell Alfaro Nicole Disposition Clinical Impression: Leg pain Disposition: HOME SELF-CARE Condition: Good Instructions (If sedation given, give patient instructions): Ankle Sprain (ED) Is patient prescribed a controlled substance at d/c from ED?: No Referrals: None,Stated [Primary Care Provider] - 1-2 days Hamlet Vidales MD [STAFF PHYSICIAN] - 1-2 days
== END 2021-07-26 18:08 | disposition home or self-care (01) ==
LOC: EC 14:47
DX: M25.571 Pain in right ankle and joints of right foot (principal); E11.9 Type 2 diabetes mellitus without complications; I10 Essential (primary) hypertension; F12.90 Cannabis use, unspecified, uncomplicated
CPT/HCPCS: 36415; 73610; 93971; 99284; 96372; J1885

== ENCOUNTER 2022-11-08 12:55 | Observation (INO) | payer OTHER ==
[2022-11-08] MEDS ORDERED: CLINDAMYCIN 150 MG CAP PO STA (14:40)
[2022-11-08] MEDS ORDERED: KETOROLAC 15 MG/ML 1 ML VIAL IM STA (14:40)
[2022-11-08] MEDS ORDERED: SODIUM CHLORIDE 0.9% 1,000 ML IV STA (15:02)
[2022-11-08 15:26] LABS: Basophils % (A) 0 %; Eosinophils # (A) 0.2 k/uL (0-0.7); Eosinophils % (A) 2 %; HCT 45.1 % (39.0-53.0); HGB 15.7 gm/dL (13.0-17.5); Lymphocytes # (A) 2.7 k/uL (1.0-4.8); Lymphocytes % (A) 22 %; MCH 29.4 pg (25.0-35.0); MCHC 34.7 g/dL (31.0-37.0); MCV 84.8 fL (80.0-100.0); Mean Platelet Volume 7.5; Monocytes # (A) 0.5 k/uL (0-1.0); Monocytes % (A) 4 %; Neutrophils # (A) 8.6 k/uL (1.3-7.7); Neutrophils % (A) 71 %; Platelet Count 275 k/uL (150-450); RBC 5.32 m/uL (4.30-5.90); RDW 13.4 % (11.5-15.5); WBC 12.2 k/uL (3.8-10.6)
--- NOTE | 2022-11-08 15:37 | XR ---
EXAMINATION TYPE: XR chest 2V DATE OF EXAM: 11/08/2022 3:30 PM COMPARISON: Chest radiographs from 02/24/2016 TECHNIQUE: XR chest 2V Frontal and lateral views of the chest. CLINICAL INDICATION:Male, 57 years old with history of syncope; FINDINGS: Lungs/Pleura: There is no evidence of pleural effusion, focal consolidation, or pneumothorax. Pulmonary vascularity: Unremarkable. Heart/mediastinum: Cardiomediastinal silhouette is unremarkable. Musculoskeletal: No acute osseous pathology. Multilevel degenerative disc disease of the thoracic spi ne. Partial visualization of cervical fusion hardware. Bilateral AC joint arthropathy. IMPRESSION: No acute cardiopulmonary disease/process.
[2022-11-08 15:45] LABS: INR 0.9 (<1.2); Partial Thromboplastin Time 24.4 sec (22.0-30.0); Prothrombin Time 10.1 sec (9.0-12.0)
[2022-11-08] MEDS ORDERED: HYDROmorphone 0.5 MG/0.5 ML SYRINGE IVP STA (16:24)
[2022-11-08 16:27] LABS: ALT 25 U/L (4-49); AST 35 U/L (17-59); African American GFR (CKD) >90 (>60 ml/min/1.73 sqM); Alkaline Phosphatase 85 U/L (38-126); Anion Gap 9 mmol/L; Blood Urea Nitrogen 8 mg/dL (9-20); Calcium 9.3 mg/dL (8.4-10.2); Carbon Dioxide 22 mmol/L (22-30); Chloride 107 mmol/L (98-107); Glucose 105 mg/dL (74-99); Non-African American GFR(CKD) >90 (>60 ml/min/1.73 sqM); Potassium 4.4 mmol/L (3.5-5.1); Sodium 138 mmol/L (137-145); Total Bilirubin 0.6 mg/dL (0.2-1.3); Total Protein 7.1 g/dL (6.3-8.2)
--- NOTE | 2022-11-08 16:38 | CT ---
EXAMINATION TYPE: CT facial bones wo con, CT brain cspine wo con DATE OF EXAM: 11/08/2022 COMPARISON: 03/01/2019 HISTORY: 57-year-old male Dental pain, fall CT DLP: 1392.2 mGycm Automated exposure control for dose reduction was used. Technique: Examination of the head was done in axial plane without intravenous contrast. Coronal and sagittal reconstructions performed. CT of the cervical spine was obtained in axial plane without intravenous injection of contrast mater ial. Coronal and sagittal reformatted images were obtained from the axial views for evaluation of f ractures, spinal alignment and canal. FINDINGS: HEAD: There is no evidence of acute intracranial hemorrhage, acute ischemic changes, mass, mass-effect, or extra-axial fluid collection. There is no effacement of cerebral sulci or basal subarachnoid cister ns. There is no hydrocephalus. There is no midline shift. Parks-white matter distinction is preserv ed. Some atherosclerotic calcifications in the left greater than right carotid siphons. Mastoid air cells well pneumatized. No calvarial fracture. FACIAL BONES: The mandible, TMJ's, pterygoid plates, zygomatic arches are intact. No nasal bone fracture. Orbits an d globes appear intact. There is moderate mucosal thickening throughout the ethmoid air cells and mild to moderate within the bilateral maxillary sinuses. Leftward nasal septal deviation. No air-fluid levels. The patient is partially edentulous. Small scat tered dental caries are noted, particularly involving the left-sided maxillary teeth. CERVICAL SPINE: No craniocervical junction abnormality, predental space widening, or prevertebral soft tissue swellin g. Patient is status post C4-C6 ACDF. Moderate to advanced degenerative disc disease with uncovertebral joint and facet arthropathy above t he fusion at C3-C4. Mild spondylotic change below the fusion at C6-C7. By CT, no evident canal compromise is seen. Alignment is maintained. No acute fracture of the cervical spine. At C3-C4, above the fusion, disc bulge results in at least mild narrowing of the spinal canal. Mild-t o-moderate right neuroforaminal stenosis. At C4-C5, mild bilateral neural foraminal narrowing. At C5-C6, there is moderate bilateral neural foraminal narrowing. Sagittal and coronal reformatted images confirm above findings. COMBINED IMPRESSION: Head: 1. No acute intracranial abnormality seen. Facial bones: 2. No acute facial bone fracture seen. 3. Sitw-fg-bokimzek chronic ethmoid and maxillary sinus disease. 4. Small scattered dental caries particularly involving the left sided maxillary teeth. Cervical spine: 5. Status post C4-C6 ACDF. No acute fracture or malalignment of the cervical spine. 6. Moderate spondylitic changes especially above the fusion at C3-C4. Disc bulge here may contribute to mild narrowing of the spinal canal. Moderate bilateral neural foraminal stenosis at C5-C6.
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
[2022-11-08] MEDS ORDERED: NALOXONE 0.4 MG/ML 1 ML VIAL IV PRN (18:20)
[2022-11-08] MEDS: HYDROmorphone 0.5 MG/0.5 ML SYRINGE IVP PRN (21:39)
[2022-11-08] MEDS: SODIUM CHLORIDE 0.9% 1,000 ML IV SCH (21:40)
[2022-11-09] MEDS: HYDROmorphone 0.5 MG/0.5 ML SYRINGE IVP PRN ×5 (00:29→23:59)
[2022-11-09] MEDS ORDERED: VANCOMYCIN IV PER PHARMACY 1 EACH MISC MISCELLANE PRN (03:58)
[2022-11-09] MEDS ORDERED: VANCOMYCIN 1,500 MG in SODIUM CHLORIDE 0.9% 500 ML 500 ML IVPB ONE (04:15)
[2022-11-09] MEDS ORDERED: DEXTROSE 50% SYRINGE 50 ML IVP PRN ×2 (04:19)
[2022-11-09] MEDS: DOXYCYCLINE 100 MG CAP PO SCH ×2 (04:20→19:48)
[2022-11-09] MEDS: KETOROLAC 15 MG/ML 1 ML VIAL IVP PRN ×2 (04:20→16:56)
[2022-11-09] MEDS ORDERED: LORazepam 2 MG/ML INJ IV STA (04:27)
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
[2022-11-09] MEDS ORDERED: KETOROLAC 15 MG/ML 1 ML VIAL IVP SCH (06:00)
[2022-11-09] MEDS: INSULIN ASPART (NovoLOG) 100 UNIT/ML VIAL SQ SCH ×4 (06:08→19:53)
[2022-11-09 06:09] LABS: Glucose,Whole Blood 116 mg/dL (70-110)
--- NOTE | 2022-11-09 08:20 | P.CRDCN ---
History of Present Illness Consult date: 11/09/22 History of present illness: History of Present Illness: The patient is a 57-year-old male with a history of diabetes, hyperlipidemia who presented after syncope, fall and left-sided swelling and discomfort. According to him he found himself on the ground about 2 weeks ago test for about a minute or 2, not associated with any palpitations, change in the dyspnea or chest discomfort. He had no tonic-clonic activity and no loss of bladder control. He subsequently had another episode last week while walking, very brief. He presents with symptoms of left sided face discomfort. On the monitor he has been in sinus mechanism since admission. He has no substernal chest discomfort. He has mild chronic dyspnea. He has occasional palpitations but not any worse recently. He has a history of diabetes but has not seen a physician in a while. He was seen by Dr. Dumont February 2020 and had reported severe hyperlipidemia and uncontrolled diabetes mellitus. The patient is taking metformin from his neighbor. He is usually active physically has no exertional chest pain. He has no PND, orthopnea or peripheral edema. He has no documented history of malignant arrhythmia. He denies tobacco use or alcohol use but he smokes marijuana on a regular basis Medications: Metformin Review of Systems: Respiratory: Mild chronic dyspnea on exertion GI: No nausea or vomiting . No history of peptic ulcer disease. No recent GI bleed. : No hematuria or dysuria. Nervous System: No stroke or seizure. He has numbness on the left arm at times and has a known cervical radiculopathy Physical Examination: 57-year-old male, alert and oriented, no apparent distress. Blood pressure 166/87, Heart rate 86 Head: Swelling on the left side of the face with ecchymosis Eyes: Sclerae nonicteric. Neck: Good carotid upstroke, no bruit, no jugular venous distention. Lungs: Clear to auscultation. Heart: Regular rate and rhythm, S1-S2, no S3, no rub. No murmur. Abdomen: Soft nontender, positive bowel sounds no organomegaly. Extremities: No edema, intact distal pulses. Labs: Hemoglobin 15.7, potassium 4.4, BUN 8, creatinine 0.69. Troponin less than 0.012. Computed tomography scan of the head showed no evidence of fracture. EKG: Sinus mechanism with no acute changes Impression: 1. Syncopal episode, no clear evidence to suggest arrhythmia. No associated symptoms to suggest ischemia. 2. Diabetes mellitus 3. Prior history of hyperlipidemia 4. Hypertension Plan: 1. Obtain an echocardiogram with Doppler 2. Continue telemetry 3. Add statin and BEKA inhibitor 4. Treatment of sinus infection 5. Depending on his progress further recommendations will be made, thank you for this consult we will follow with you. Past Medical History Past Medical History: Diabetes Mellitus, Hypertension Additional Past Medical History / Comment(s): hypercholestremia History of Any Multi-Drug Resistant Organisms: None Reported Past Surgical History: Hernia Repair Additional Past Surgical History / Comment(s): neck surgery, finger surgery Past Psychological History: Anxiety Smoking Status: Never smoker Past Alcohol Use History: Occasional Past Drug Use History: Marijuana Medications and Allergies Home Medications Medication Instructions Recorded Confirmed Type metFORMIN HCL 500 mg PO DIRECTED 11/08/22 11/08/22 History Allergies Allergy/AdvReac Type Severity Reaction Status Date / Time Penicillins Allergy Rash/Hives Verified 11/08/22 15:26 Physical Exam Vitals: Vital Signs Temp Pulse Pulse Resp BP BP Pulse Ox 11/09/22 07:00 98.2 F 86 16 157/78 97 11/09/22 02:05 98.5 F 93 17 151/79 98 11/08/22 22:56 97.9 F 74 16 166/87 95 11/08/22 21:40 85 18 148/94 97 11/08/22 19:37 92 20 163/79 97 11/08/22 16:30 92 165 H 160/79 97 11/08/22 13:05 98.4 F 87 18 150/84 99 Intake and Output 11/08/22 11/09/22 11/09/22 22:59 06:59 14:59 Other: Voiding Method Toilet # Voids 2 1 Weight 90.718 kg Results 11/08/22 15:19 11/08/22 15:19 Cardiac Enzymes 11/08/22 11/08/22 11/08/22 Range/Units 15:19 15:19 20:38 AST 35 (17-59) U/L Troponin I <0.012 <0.012 (0.000-0.034) ng/mL 11/09/22 Range/Units 00:34 AST (17-59) U/L Troponin I <0.012 (0.000-0.034) ng/mL Coagulation 11/08/22 Range/Units 15:19 PT 10.1 (9.0-12.0) sec APTT 24.4 (22.0-30.0) sec CBC 11/08/22 Range/Units 15:19 WBC 12.2 H (3.8-10.6) k/uL RBC 5.32 (4.30-5.90) m/uL Hgb 15.7 (13.0-17.5) gm/dL Hct 45.1 (39.0-53.0) % Plt Count 275 (150-450) k/uL Comprehensive Metabolic Panel 11/08/22 Range/Units 15:19 Sodium 138 (137-145) mmol/L Potassium 4.4 (3.5-5.1) mmol/L Chloride 107 (98-107) mmol/L Carbon Dioxide 22 (22-30) mmol/L BUN 8 L (9-20) mg/dL Creatinine 0.69 (0.66-1.25) mg/dL Glucose 105 H (74-99) mg/dL Calcium 9.3 (8.4-10.2) mg/dL AST 35 (17-59) U/L ALT 25 (4-49) U/L Alkaline Phosphatase 85 (38-126) U/L Total Protein 7.1 (6.3-8.2) g/dL Albumin 4.0 (3.5-5.0) g/dL Current Medications Generic Name Dose Route Start Last Admin Trade Name Freq PRN Reason Stop Dose Admin Atorvastatin Calcium 40 mg 11/09/22 09:00 Atorvastatin 40 Mg Tab PO DAILY [facility] Dextrose/Water 25 ml 11/09/22 04:19 Dextrose 50% Syringe 50 Ml IVP PER PROTOCOL PRN Hypoglycemia Protocol Dextrose/Water 50 ml 11/09/22 04:19 Dextrose 50% Syringe 50 Ml IVP PER PROTOCOL PRN Hypoglycemia Protocol Doxycycline Monohydrate 100 mg 11/09/22 04:15 11/09/22 04:20 Doxycycline 100 Mg Cap PO 100 mg BID DIONISIO Administration Protocol Heparin Sodium (Porcine) 5,000 unit 11/09/22 08:00 Heparin Sodium,Porcine/Pf 5,000 Unit/0.5 Ml Syringe SQ Q8HR [facility] Hydromorphone HCl 0.5 mg 11/08/22 18:23 11/09/22 08:07 Hydromorphone 0.5 Mg/0.5 Ml Syringe IVP 0.5 mg Q3H PRN Administration Pain Sodium Chloride 1,000 mls @ 75 mls/hr 11/08/22 18:30 11/08/22 21:40 Saline 0.9% IV 75 mls/hr .[id number] DIONISIO Administration Vancomycin HCl 1,500 mg/ 500 mls @ 167 mls/hr 11/09/22 16:00 Sodium Chloride IVPB Q12H DIONISIO Insulin Aspart 0 unit 11/09/22 07:30 11/09/22 06:08 Insulin Aspart (Novolog) 100 Unit/Ml Vial SQ Not Given ACHS [facility] Protocol Ketorolac Tromethamine 15 mg 11/09/22 04:10 11/09/22 04:20 Ketorolac 15 Mg/Ml 1 Ml Vial IVP 11/14/22 03:59 15 mg Q6HR PRN Administration Pain Lisinopril 5 mg 11/09/22 09:00 Lisinopril 5 Mg Tab PO BID DIONISIO Naloxone HCl 0.2 mg 11/08/22 18:20 Naloxone 0.4 Mg/Ml 1 Ml Vial IV Q2M PRN Opioid Reversal Intake and Output 11/08/22 11/09/22 11/09/22 22:59 06:59 14:59 Other: Voiding Method Toilet # Voids 2 1 Weight 90.718 kg 11/08/22 15:19 11/08/22 15:19
[2022-11-09] MEDS: SODIUM CHLORIDE 0.9% 1,000 ML IV SCH ×2 (09:44→19:49)
[2022-11-09] MEDS ORDERED: diphenhydrAMINE 50 MG/ML 1 ML VIAL IVP STA (10:15)
[2022-11-09] MEDS ORDERED: PROCHLORPERAZINE INJ 10 MG/2 ML VIAL IVP STA (10:15)
[2022-11-09] MEDS ORDERED: KETOROLAC 15 MG/ML 1 ML VIAL IVP STA (10:15)
[2022-11-09] MEDS: HEPARIN SODIUM,PORCINE/PF 5,000 UNIT/0.5 ML SYRINGE SQ SCH ×3 (10:37→19:48)
[2022-11-09] MEDS: lisinopriL 5 MG TAB PO SCH ×2 (10:38→19:48)
[2022-11-09] MEDS: ATORVASTATIN 40 MG TAB PO SCH (10:38)
--- NOTE | 2022-11-09 11:40 | CA ---
Transthoracic Echo Report Name: Tim Coto Age: 57 Gender: M : 1965 Exam Date: 11/09/2022 07:40 Exam Location: [facility] Ht (in): 67 Wt (lb): 200 Ordering Physician: Dino Riley MD Attending/Referring Phys: [id number], Rosemary Teletype Clerk Mckenzie Blanchard, [facility] Procedure CPT: Indications: Syncope Cardiac Hx: Technical Quality: Good Contrast 1: Total Dose (mL): Contrast 2: Total Dose (mL): MEASUREMENTS (Male / Female) Normal Values 2D ECHO LV Diastolic Diameter PLAX 4.7 cm 4.2 - 5.9 / 3.9 - 5.3 cm LV Systolic Diameter PLAX 2.8 cm IVS Diastolic Thickness 1.3 cm 0.6 - 1.0 / 0.6 - 0.9 cm LVPW Diastolic Thickness 1.3 cm 0.6 - 1.0 / 0.6 - 0.9 cm LV Relative Wall Thickness 0.6 RV Internal Dim ED PLAX 3.1 cm LA Systolic Diameter LX 4.0 cm 3.0 - 4.0 / 2.7 - 3.8 cm LV Diastolic Volume MOD 4C 71.6 cm??? LV Systolic Volume MOD 4C 28.6 cm??? LV Ejection Fraction MOD 4C 60.0 % LV Diastolic Length 4C 7.5 cm LV Systolic Length 4C 6.4 cm LV Diastolic Volume MOD 2C 62.5 cm??? LV Systolic Volume MOD 2C 22.4 cm??? LV Ejection Fraction MOD 2C 64.2 % LV Diastolic Length 2C 7.1 cm LV Systolic Length 2C 5.9 cm LA Volume 50.5 cm??? 18 - 58 / 22 - 52 cm??? M-MODE Aortic Root Diameter MM 3.3 cm MV E Point Septal Separation 0.4 cm AV Cusp Separation MM 1.6 cm DOPPLER AV Peak Velocity 191.8 cm/s AV Peak Gradient 14.7 mmHg AV Mean Velocity 138.1 cm/s AV Mean Gradient 8.5 mmHg AV Velocity Time Integral 42.1 cm MV Area PHT 3.3 cm??? Mitral E Point Velocity 102.5 cm/s Mitral A Point Velocity 91.2 cm/s Mitral E to A Ratio 1.1 MV Deceleration Time 233.1 ms MV E' Velocity 6.7 cm/s Mitral E to MV E' Ratio 15.4 TR Peak Velocity 221.9 cm/s TR Peak Gradient 19.7 mmHg Right Ventricular Systolic Press 24.1 mmHg FINDINGS Left Ventricle Left ventricular ejection fraction is estimated at 55-60 %. Left ventricular cavity size normal. Normal left ventricular wall motion. Mildly increased left ventricular wall thickness. Right Ventricle Normal right ventricular size and function. Right ventricular systolic pressure within normal limits. Right Atrium Normal right atrial size. Left Atrium Normal left atrial size. Mitral Valve Structurally normal mitral valve. Mild mitral regurgitation. Aortic Valve Trileaflet aortic valve. No aortic valve stenosis or regurgitation. Thickened aortic valve without stenosis. Tricuspid Valve Structurally normal tricuspid valve. Mild tricuspid regurgitation. Pulmonic Valve Structurally normal pulmonic valve. No pulmonic regurgitation. Pericardium Normal pericardium. No pericardial effusion. Aorta Normal size aortic root and proximal ascending aorta. CONCLUSIONS 1. Normal left ventricle size and systolic function 2. Mild mitral and tricuspid regurgitation Previewed by: Dr. Wendi Moon MD (Electronically Signed) Final Date: 09 November 2022 11:39
[2022-11-09 11:55] LABS: Glucose,Whole Blood 203 mg/dL (70-110)
[2022-11-09 14:17] LABS: LDL Cholesterol,Calculated 105.4 mg/dL (0.0-131.0)
[2022-11-09] MEDS: VANCOMYCIN 1,500 MG in SODIUM CHLORIDE 0.9% 500 ML 500 ML IVPB SCH (15:55)
[2022-11-09 17:20] LABS: Glucose,Whole Blood 94 mg/dL (70-110)
--- NOTE | 2022-11-09 19:46 | P.PN ---
Subjective Progress Note Date: 11/09/22 Hospital course: Patient is a very pleasant 57-year-old male with a past medical history of [id number] diabetes mellitus, hypertension, and hyperlipidemia. He presented to the hospital on 11/08/22 status post recurrent syncopal episodes over the past week with no previous or known associated factors. He underwent full evaluation in the emergency department. EKG was completed showing normal sinus rhythm at 78 bpm with no noted T-wave or ST abnormalities upon personal review and interpretation. Labs completed and reviewed. CBC showing mild leukocytosis with WBC count of 12.2, coagulation profile normal findings. BMP unremarkable. Blood glucose 105. Liver profile unremarkable. Troponin less than 0.012. CT head and face was completed and negative for acute intercranial process or facial bone fractures showing mild to moderate chronic ethmoid and maxillary sinus disease and small scattered dental caries involving the left- sided maxillary teeth. CT cervical spine negative for acute fracture or bowel alignment. Patient admitted under the services for consultation a cardiology and neurology. Lipid profile resulting elevated triglycerides of 347, total cho lesterol 206, VLDL of 39.40, and low HDL of 31.20. Troponins were trended all negative at less than 0.0123 draws. Echocardiogram completed and upon review showing normal EF of 55-60% with mild mitral and tricuspid regurgitation. Physical exam: Vital signs reviewed and stable. General: Nontoxic, no distress and appears stated age. Derm: Skin warm and dry, normal coloration for ethnicity. Head: Atraumatic, normocephalic and symmetric. Patient with moderate swelling and tenderness to left side of face. Eyes: EOMs intact, no lid lag, and anicteric sclera Mouth: no lip lesions, mucus membranes moist. Poor dentition of the left upper molars with multiple caries. Cardiovascular: regular rate and rhythm with normal S1S2, systolic murmur, positive posterior tibial pulses bilaterally, and cap refill < 2 seconds. Lungs: Respirations even, regular, and unlabored on room air. Lungs CTA b ilaterally, no rhonchi, no rales, no wheezing, and no accessory muscle usage. Abdominal: soft, nontender to palpation, no guarding, no appreciable organomegaly Ext: ROM intact. No gross muscle atrophy, no edema, no contractures Neuro: Speech clear, face symmetrical and CN II-XII grossly intact with no noted focal neuro deficits Psych: Alert and oriented to person, place, time, and situation. Appropriate and pleasant affect. Assessment and Plan of Care: Recurrent syncopal episodes, unclear etiology rule out underlying cardiac and neurologic causes -Cardiology following. -Continuous telemetry monitoring. -Troponins were trended overnight all negative at less than 0.0123 draws. -Echocardiogram completed and reviewed showing normal EF of 55-60% with mild mitral and tricuspid regurgitation. -Orders placed for orthostatic vitals. -Orders placed for Fall precautions -Orders placed for Neuro checks every 4 hours. -Orders placed for Neurology consult. Acute sinusitis and multiple dental caries resulting in left-sided facial swelling and pain -Continue oral antibiotics with doxycycline 100 mg twice a day by mouth -Vancomycin 1500 mg IVPB every 12 hours -Toradol 50 mg IV push every 6 hours when necessary for pain and swelling -Dilaudid for breakthrough pain 0.5 mg every 3 hours -Ativan 1 mg IV for anxiety -Tylenol for fever 650 mg when necessary Pto-bonlrrz-lojesgxsv Diabetes mellitus -Hold oral hypoglycemic agents and placed patient on glycemic protocol with NovoLog sliding scale. -Hemoglobin A1c 5.9%. CODE STATUS: Full code DVT prophylaxis: heparin Discussed with: patient and RN Anticipated discharge date: clinical course to determine Anticipated discharge place: home Patient was seen independently by Nurse Pracitioner. This document was prepared using [employer] dictation software. Please allow for errors in manager transportation, while rare they do occur. I reviewed the documentation as provided by the ANA CRISTINA above, who is the original author of this note. I agree with the documented assessment and plan, with the following changes: none Objective - Vital Signs Vital signs: Vital Signs Temp 98.2 F 11/09/22 07:00 Pulse 86 11/09/22 07:00 Resp 16 11/09/22 07:00 BP 157/78 11/09/22 07:00 Pulse Ox 97 11/09/22 07:00 FiO2 Intake & Output 11/08/22 11/09/22 11/09/22 18:59 06:59 18:59 Weight 90.718 kg 90.718 kg Other: Voiding Method Toilet # Voids 1 - Labs CBC & Chem 7: 11/10/22 05:38 11/10/22 05:38 Labs: Abnormal Lab Results - Last 24 Hours (Table) 11/08/22 11/08/22 11/09/22 Range/Units 15:19 15:19 06:07 WBC 12.2 H (3.8-10.6) k/uL Neutrophils # 8.6 H (1.3-7.7) k/uL BUN 8 L (9-20) mg/dL Glucose 105 H (74-99) mg/dL POC Glucose (mg/dL) 116 H (70-110) mg/dL
[2022-11-09 19:53] LABS: Glucose,Whole Blood 95 mg/dL (70-110)
[2022-11-10] MEDS: KETOROLAC 15 MG/ML 1 ML VIAL IVP PRN ×4 (02:32→23:06)
[2022-11-10] MEDS: VANCOMYCIN 1,500 MG in SODIUM CHLORIDE 0.9% 500 ML 500 ML IVPB SCH ×2 (03:33→15:21)
[2022-11-10 06:12] LABS: Glucose,Whole Blood 100 mg/dL (70-110)
[2022-11-10 06:13] LABS: HCT 40.3 % (39.0-53.0); HGB 14.2 gm/dL (13.0-17.5); MCH 29.7 pg (25.0-35.0); MCHC 35.2 g/dL (31.0-37.0); MCV 84.5 fL (80.0-100.0); Mean Platelet Volume 8.4; Platelet Count 219 k/uL (150-450); RBC 4.77 m/uL (4.30-5.90); RDW 13.4 % (11.5-15.5); WBC 10.8 k/uL (3.8-10.6)
[2022-11-10] MEDS: INSULIN ASPART (NovoLOG) 100 UNIT/ML VIAL SQ SCH ×4 (06:13→21:31)
[2022-11-10 06:39] LABS: ALT 20 U/L (4-49); African American GFR (CKD) >90 (>60 ml/min/1.73 sqM); Albumin 3.7 g/dL (3.5-5.0); Albumin/Globulin Ratio 1.4; Anion Gap 6 mmol/L; Blood Urea Nitrogen 11 mg/dL (9-20); Calcium 8.6 mg/dL (8.4-10.2); Carbon Dioxide 25 mmol/L (22-30); Chloride 108 mmol/L (98-107); Globulin 2.7 g/dL; Glucose 95 mg/dL (74-99); Non-African American GFR(CKD) >90 (>60 ml/min/1.73 sqM); Sodium 139 mmol/L (137-145); Total Bilirubin 1.3 mg/dL (0.2-1.3); Total Protein 6.4 g/dL (6.3-8.2)
[2022-11-10 06:47] LABS: AST 27 U/L (17-59); Alkaline Phosphatase 65 U/L (38-126); Potassium 4.4 mmol/L (3.5-5.1)
[2022-11-10] MEDS: HYDROmorphone 0.5 MG/0.5 ML SYRINGE IVP PRN ×4 (08:26→21:43)
[2022-11-10] MEDS: HEPARIN SODIUM,PORCINE/PF 5,000 UNIT/0.5 ML SYRINGE SQ SCH ×3 (08:26→23:11)
[2022-11-10] MEDS: SODIUM CHLORIDE 0.9% 1,000 ML IV SCH ×2 (08:27→21:50)
[2022-11-10] MEDS: lisinopriL 5 MG TAB PO SCH ×2 (08:27→21:43)
[2022-11-10] MEDS: ATORVASTATIN 40 MG TAB PO SCH (08:27)
[2022-11-10] MEDS: DOXYCYCLINE 100 MG CAP PO SCH ×2 (08:27→21:43)
--- NOTE | 2022-11-10 11:02 | P.PN ---
Subjective Progress Note Date: 11/10/22 History of Present Illness: The patient is a 57-year-old male with a history of diabetes, hyperlipidemia who presented after syncope, fall and left-sided swelling and discomfort. According to him he found himself on the ground about 2 weeks ago test for about a minute or 2, not associated with any palpitations, change in the dyspnea or chest discomfort. He had no tonic-clonic activity and no loss of bladder control. He subsequently had another episode last week while walking, very brief. He presen ts with symptoms of left sided face discomfort. On the monitor he has been in sinus mechanism since admission. He has no substernal chest discomfort. He has mild chronic dyspnea. He has occasional palpitations but not any worse recently. He has a history of diabetes but has not seen a physician in a while. He was seen by Dr. Dumont February 2020 and had reported severe hyperlipidemia and uncontrolled diabetes mellitus. The patient is taking metformin from his neighbor. He is usually active physically has no exertional chest pain. He has no PND, orthopnea or peripheral edema. He has no documented history of malignant arrhythmia. He denies tobacco use or alcohol use but he smokes marijuana on a regular basis Medications: Metformin 11/10 Patient is seen today in follow-up. He states he has some generalized soreness. No chest pain. No syncopal episodes. Lower extremity edema is improving. Echocardiogram revealed normal left ventricle size and systolic function, mild mitral and tricuspid regurgitation. Blood pressure 131/78, heart rate in the 70s and 80s, pulse ox 94% on room air and patient is been afebrile. vehicle monitor technician has been a regular sinus rhythm. No signs of arrhythmia Physical Examination: 57-year-old male, alert and oriented, no apparent distress. Blood pressure 166/87, Heart rate 86 Head: Swelling on the left side of the face with ecchymosis Eyes: Sclerae nonicteric. Neck: Good carotid upstroke, no bruit, no jugular venous distention. Lungs: Clear to auscultation. Heart: Regular rate and rhythm, S1-S2, no S3, no rub. No murmur. Abdomen: Soft nontender, positive bowel sounds no organomegaly. Extremities: No edema, intact distal pulses. Impression: 1. Syncopal episode, no clear evidence to suggest arrhythmia. No associated symptoms to suggest ischemia. 2. Diabetes mellitus 3. Prior history of hyperlipidemia 4. Hypertension Plan: Continue patient's current cardiac medications Patient is cleared for discharge from cardiology and may follow-up with Dr. Dumont in 1 week. Nurse practitioner note has been reviewed, I agree with the documented findings and plan of care. Patient was seen and examined. Objective - Vital Signs Vital signs: Vital Signs Temp 97.9 F 11/10/22 07:00 Pulse 80 11/10/22 07:00 Resp 16 11/10/22 07:00 BP 131/78 11/10/22 07:00 Pulse Ox 94 L 11/10/22 07:00 FiO2 Intake & Output 11/09/22 11/10/22 11/10/22 18:59 06:59 18:59 Intake Total 120 Balance 120 Intake: Oral 120 Other: Voiding Method Toilet Toilet # Voids 2 - Labs CBC & Chem 7: 11/10/22 05:38 11/10/22 05:38 Labs: Abnormal Lab Results - Last 24 Hours (Table) 11/08/22 11/09/22 11/10/22 Range/Units 15:19 11:54 05:38 WBC (3.8-10.6) k/uL Chloride 108 H (98-107) mmol/L POC Glucose (mg/dL) 203 H (70-110) mg/dL Triglycerides 347.00 H (0.00-149.00) mg/dL Cholesterol 206.00 H (0.00-200.00) mg/dL VLDL Cholesterol, Calc 69.40 H (5.00-40.00) mg/dL HDL Cholesterol 31.20 L (40.00-60.00) mg/dL 11/10/22 Range/Units 05:38 WBC 10.8 H (3.8-10.6) k/uL Chloride (98-107) mmol/L POC Glucose (mg/dL) (70-110) mg/dL Triglycerides (0.00-149.00) mg/dL Cholesterol (0.00-200.00) mg/dL VLDL Cholesterol, Calc (5.00-40.00) mg/dL HDL Cholesterol (40.00-60.00) mg/dL
[2022-11-10 12:27] LABS: Glucose,Whole Blood 106 mg/dL (70-110)
--- NOTE | 2022-11-10 15:36 | EEG ---
DATE OF SERVICE: 11/10/2022 ELECTROENCEPHALOGRAM REPORT PREAMBLE: This is a 57-year-old male with recurrent syncopal spells. EEG FINDINGS: This is a 21-channel digital EEG recorded with video component, utilizing 10/20 international system with referential and bipolar montages. Background consists of well developed, well regulated moderate voltage activity in 9 hertz alpha. Background is posterior dominant and reactive to eye opening and closing. Photic driving response was seen with some flash frequencies. Drowsiness was seen with appearance of bilaterally symmetric theta frequency rhythm. Deeper stages of sleep were not seen. No focal or generalized epileptiform activity was seen. EKG channel showed no obvious arrhythmia. IMPRESSION: This is a normal awake and drowsy EEG. No focal, lateralized or epileptiform activity was seen. MMODL / IJN: [id number] / MTDD
[2022-11-10 17:19] LABS: Glucose,Whole Blood 148 mg/dL (70-110)
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
--- NOTE | 2022-11-10 17:59 | P.PN ---
Subjective Progress Note Date: 11/10/22 Hospital course: Patient is a very pleasant 57-year-old male with a past medical history of [id number] diabetes mellitus, hypertension, and hyperlipidemia. He presented to the hospital on 11/08/22 status post recurrent syncopal episodes over the past week with no previous or known associated factors. He underwent full evaluation in the emergency department. EKG was completed showing normal sinus rhythm at 78 bpm with no noted T-wave or ST abnormalities upon personal review and interpretation. Labs completed and reviewed. CBC showing mild leukocytosis with WBC count of 12.2, coagulation profile normal findings. BMP unremarkable. Blood glucose 105. Liver profile unremarkable. Troponin less than 0.012. CT head and face was completed and negative for acute intercranial process or facial bone fractures showing mild to moderate chronic ethmoid and maxillary sinus disease and small scattered dental caries involving the left- sided maxillary teeth. CT cervical spine negative for acute fracture or bowel alignment. Patient admitted under the services for consultation a cardiology and neurology. Lipid profile resulting elevated triglycerides of 347, total cho lesterol 206, VLDL of 39.40, and low HDL of 31.20. Troponins were trended all negative at less than 0.0123 draws. Echocardiogram completed and upon review showing normal EF of 55-60% with mild mitral and tricuspid regurgitation. Physical exam: Patient seen and fully evaluated at bedside this morning. Patient was sitting up in chair at bedside reports feeling slightly better today but continues to have pain to left side of face and headache. Vital signs reviewed and stable. General: Nontoxic, no distress and appears stated age. Derm: Skin warm and dry, normal coloration for ethnicity. Head: Atraumatic, normocephalic and symmetric. Patient with moderate swelling and tenderness to left side of face. Eyes: EOMs intact, no lid lag, and anicteric sclera Mouth: no lip lesions, mucus membranes moist. Poor dentition of the left upper molars with multiple caries. Cardiovascular: regular rate and rhythm with normal S1S2, systolic murmur, positive posterior tibial pulses bilaterally, and cap refill < 2 seconds. Lungs: Respirations even, regular, and unlabored on room air. Lungs CTA bilaterally, no rhonchi, no rales, no wheezing, and no accessory muscle usage. Abdominal: soft, nontender to palpation, no guarding, no appreciable organomegaly Ext: ROM intact. No gross muscle atrophy, no edema, no contractures Neuro: Speech clear, face symmetrical and CN II-XII grossly intact with no noted focal neuro deficits Psych: Alert and oriented to person, place, time, and situation. Appropriate and pleasant affect. Assessment and Plan of Care: Recurrent syncopal episodes, unclear etiology rule out underlying cardiac and neurologic causes -Cardiology evaluated Stating no clear evidence to suggest arrhythmia and clearing patient from cardiac perspective for discharge. -Continue telemetry monitoring. -Echocardiogram completed and reviewed showing normal EF of 55-60% with mild mitral and tricuspid regurgitation. -Orthostatic vitals negative for orthostatic hypotension -Orders placed for Fall precautions -Orders placed for Neuro checks every 4 hours. -Neurology following and discussed plan of care with neurologist who is recommending EEG, carotid Dopplers, and discharged home on event monitor Acute sinusitis and multiple dental caries resulting in left-sided facial swe lling and pain -Continue oral antibiotics with doxycycline 100 mg twice a day by mouth -Vancomycin 1500 mg IVPB every 12 hours -Toradol 50 mg IV push every 6 hours when necessary for pain and swelling -Dilaudid for breakthrough pain 0.5 mg every 3 hours -Ativan 1 mg IV for anxiety -Tylenol for fever 650 mg when necessary Upc-ynajpxl-htbyrxnce Diabetes mellitus -Hold oral hypoglycemic agents and placed patient on glycemic protocol with NovoLog sliding scale. -Hemoglobin A1c 5.9%. Data review: Labs reviewed CBC showing leukocytosis with WBC count of 10.8, BMP unremarkable. Liver profile also unremarkable. Blood glucose levels have ranged from 116-203 throughout admission. Vital signs stable. Blood pressure 131/78, heart rate 80, respiratory rate 16, temp 97.9F, SpO2 of 94% on room air. CODE STATUS: Full code DVT prophylaxis: heparin Discussed with: patient and RN Anticipated discharge date: clinical course to determine Anticipated discharge place: home Patient was seen independently by Nurse Pracitioner. This document was prepared using [employer] dictation software. Please allow for errors in driller and reamer, while rare they do occur. Antwon Julian NP rendered care for this patient independently, reviewed the findings and plan as documented in the note above. I did not physically speak with or examine the patient on this date. Objective - Vital Signs Vital signs: Vital Signs Temp 97.9 F 11/10/22 07:00 Pulse 80 11/10/22 07:00 Resp 16 11/10/22 07:00 BP 131/78 11/10/22 07:00 Pulse Ox 94 L 11/10/22 07:00 FiO2 Intake & Output 11/09/22 11/10/22 11/10/22 18:59 06:59 18:59 Intake Total 120 Balance 120 Intake: Oral 120 Other: Voiding Method Toilet Toilet # Voids 2 - Labs CBC & Chem 7: 11/10/22 05:38 11/11/22 04:37 Labs: Abnormal Lab Results - Last 24 Hours (Table) 11/08/22 11/09/22 11/10/22 Range/Units 15:19 11:54 05:38 WBC (3.8-10.6) k/uL Chloride 108 H (98-107) mmol/L POC Glucose (mg/dL) 203 H (70-110) mg/dL Triglycerides 347.00 H (0.00-149.00) mg/dL Cholesterol 206.00 H (0.00-200.00) mg/dL VLDL Cholesterol, Calc 69.40 H (5.00-40.00) mg/dL HDL Cholesterol 31.20 L (40.00-60.00) mg/dL 11/10/22 Range/Units 05:38 WBC 10.8 H (3.8-10.6) k/uL Chloride (98-107) mmol/L POC Glucose (mg/dL) (70-110) mg/dL Triglycerides (0.00-149.00) mg/dL Cholesterol (0.00-200.00) mg/dL VLDL Cholesterol, Calc (5.00-40.00) mg/dL HDL Cholesterol (40.00-60.00) mg/dL
--- NOTE | 2022-11-10 18:59 | US ---
EXAMINATION TYPE: US carotid duplex BILAT DATE OF EXAM: 11/10/2022 COMPARISON: NONE CLINICAL INDICATION: Male, 57 years old with history of Syncope; TECHNIQUE: Carotid duplex ultrasound examination. Indirect Doppler criteria was utilized. FINDINGS: EXAM MEASUREMENTS: RIGHT: Peak Systolic Velocity (PSV) cm/sec ----- Right CCA: 101.0 ----- Right ICA: 89.6 ----- Right ECA: 125.0 ICA/CCA ratio: 0.89 RIGHT: End Diastole cm/sec ----- Right CCA: 20.1 ----- Right ICA: 30.5 ----- Right ECA: 9.7 LEFT: Peak Systolic Velocity (PSV) cm/sec ----- Left CCA: 111.0 ----- Left ICA: 70.8 ----- Left ECA: 125.0 ICA/CCA ratio: 0.64 LEFT: End Diastole cm/sec ----- Left CCA: 26.6 ----- Left ICA: 26.0 ----- Left ECA: 14.9 VERTEBRALS (direction of flow): Right Vertebral: Antegrade Left Vertebral: Antegrade Rhythm: Normal SPANISH TEACHER NOTES: No significant stenosis seen. IMPRESSION: Less than 50% stenosis of bilateral carotid bifurcations. Criteria for Assigning % of Stenosis / Diameter reduction (Estimation based on the indirect measurements of the internal carotid artery velocities (ICA PSV). 1. Normal (no stenosis)=ICA PSV < 125 cm/s: ratio < 2.0: ICA EDV<40 cm/s. 2. Less than 50% stenosis=ICA PSV < 125 cm/s: ratio < 2.0: ICA EDV<40 cm/s. 3. 50 to 69% stenosis=ICA PSV of 125 to 230 cm/s: ration 2.0 ? 4.0: ICA EDV 40-100 cm/s. 4. Greater than 70% stenosis to near occlusion= ICA PSV > 230 cm/s: ratio > 4.0: ICA EDV > 100 cm/s. 5. Near occlusion= ICA PSV velocities may be low or undetectable: variable ratio and ICA EDV. 6. Total occlusion=unable to detect flow.
[2022-11-10 20:18] LABS: Glucose,Whole Blood 135 mg/dL (70-110)
[2022-11-11] MEDS: HYDROmorphone 0.5 MG/0.5 ML SYRINGE IVP PRN ×2 (02:51→07:40)
[2022-11-11] MEDS ORDERED: VANCOMYCIN TROUGH DUE 1 EACH MISC MISCELLANE ONE (03:00)
[2022-11-11] MEDS: VANCOMYCIN 1,500 MG in SODIUM CHLORIDE 0.9% 500 ML 500 ML IVPB SCH (04:47)
[2022-11-11 05:38] LABS: African American GFR (CKD) >90 (>60 ml/min/1.73 sqM); Non-African American GFR(CKD) >90 (>60 ml/min/1.73 sqM)
[2022-11-11 05:58] LABS: Glucose,Whole Blood 112 mg/dL (70-110)
[2022-11-11] MEDS: INSULIN ASPART (NovoLOG) 100 UNIT/ML VIAL SQ SCH ×2 (06:49→12:17)
[2022-11-11] MEDS: KETOROLAC 15 MG/ML 1 ML VIAL IVP PRN ×2 (06:51→15:59)
[2022-11-11 07:25] VITALS: BP 146/77; PULSE 81; RESP 16; TEMP 97.9
[2022-11-11] MEDS: HEPARIN SODIUM,PORCINE/PF 5,000 UNIT/0.5 ML SYRINGE SQ SCH (07:40)
[2022-11-11] MEDS: DOXYCYCLINE 100 MG CAP PO SCH (07:40)
[2022-11-11] MEDS: ATORVASTATIN 40 MG TAB PO SCH (07:40)
[2022-11-11] MEDS: lisinopriL 5 MG TAB PO SCH (07:40)
[2022-11-11] MEDS ORDERED: MECLIZINE 25 MG TAB PO PRN (11:33)
[2022-11-11 12:05] LABS: Glucose,Whole Blood 105 mg/dL (70-110)
[2022-11-11] MEDS: SODIUM CHLORIDE 0.9% 1,000 ML IV SCH (12:38)
--- NOTE | 2022-11-11 15:59 | P.DS ---
Providers Date of admission: 11/08/22 19:09 Expected date of discharge: 11/11/22 Attending physician: Johann Fink MD Consults: 11/08/22 18:20 Consult Physician Routine Consulting Provider: Chauncey Piña Consult Reason/Comments: syncope Do you want consulting provider notified?: Yes 11/09/22 19:36 Consult Physician Routine Consulting Provider: Kee Alfred Consult Reason/Comments: Recurrent syncopal episodes Do you want consulting provider notified?: Yes Primary care physician: Stated None Hospital Course: Discharge Diagnosis: Recurrent syncopal episodes, unclear etiology. Possibly secondary to acute sinusitis and pain from dental caries. CT head and face was completed and negat marianne for acute intercranial process or facial bone fractures showing mild to moderate chronic ethmoid and maxillary sinus disease and small scattered dental caries involving the left-sided maxillary teeth. CT cervical spine negative for acute fracture or bowel alignment. EKG was completed showing normal sinus rhythm at 78 bpm with no noted T-wave or ST abnormalities upon personal review and interpretation. Echocardiogram completed and upon review showing normal EF of 55-60% with mild mitral and tricuspid regurgitation. EEG completed showing normal EEG with no epileptiform activity noted. Etiology of recurrent syncopal episodes remains unclear at this time. Metformin to be held until outpatient follow-up with PCP as patient reports he believes his blood glucose levels were low at home but did not have a monitor and patient discharged home with a new glucometer provided by assistant case manager. Patient being treated for acute sinusitis and dental caries with antibiotics. Lastly patient being discharged home with event monitor. Pt to follow up with PCP, cardiology, ENT, and dentist. Acute sinusitis and multiple dental caries resulting in left-sided facial swelling and pain. Patient received 5 doses of IV vancomycin along with 3 day course of doxycycline during admission and being discharged home on oral antibiotics with doxycycline 100 mg twice a day for an additional 6 days and to follow up outpatientwith PCP, ENT physician, and dentist as discussed. [id number] Diabetes mellitus Hospital Course: Patient is a very pleasant 57-year-old male with a past medical history of [id number] diabetes mellitus, hypertension, and hyperlipidemia. He presented to the hospital on 11/08/22 status post recurrent syncopal episodes over the past week with no previous or known associated factors. He underwent full evaluation in the emergency department. EKG was completed showing normal sinus rhythm at 78 bpm with no noted T-wave or ST abnormalities upon personal review and interpretation. Labs completed and reviewed. CBC showing mild leukocytosis with WBC count of 12.2, coagulation profile normal findings. BMP unremarkable. Blood glucose 105. Liver profile unremarkable. Troponin less than 0.012. CT head and face was completed and negative for acute intercranial process or facial bone fractures showing mild to moderate chronic ethmoid and maxillary sinus disease and small scattered dental caries involving the left- sided maxillary teeth. CT cervical spine negative for acute fracture or bowel alignment. Patient admitted under the services for consultation a cardiology and neurology. Lipid profile resulting elevated triglycerides of 347, total cholesterol 206, VLDL of 39.40, and low HDL of 31.20. Troponins were trended all negative at less than 0.0123 draws. Echocardiogram completed and upon review showing normal EF of 55-60% with mild mitral and tricuspid regurgitation. EEG completed showing normal EEG with no epileptiform activity noted. Etiology of recurrent syncopal episodes remains unclear at this time. Metformin to be held until outpatient follow-up with PCP as patient reports he believes his blood glucose levels were low at home but did not have a monitor and patient discharged home with a new glucometer provided by assistant case manager. Patient being treated for acute sinusitis and dental caries with antibiotics. Lastly patient being discharged home with event monitor. Pt to follow up with PCP, cardiology, ENT, and dentist. Physical exam: Patient seen and fully evaluated at bedside this morning. Patient was sitting up in chair at bedside he continues to report feeling slightly better today but continues to have mild pain to left side of face and headache. Vital signs reviewed and stable. General: Nontoxic, no distress and appears stated age. Derm: Skin warm and dry, normal coloration for ethnicity. Head: Atraumatic, normocephalic and symmetric. Patient with moderate swelling and tenderness to left side of face. Eyes: EOMs intact, no lid lag, and anicteric sclera Mouth: no lip lesions, mucus membranes moist. Poor dentition of the left upper molars with multiple caries. Cardiovascular: regular rate and rhythm with normal S1S2, systolic murmur, positive posterior tibial pulses bilaterally, and cap refill < 2 seconds. Lungs: Respirations even, regular, and unlabored on room air. Lungs CTA bilaterally, no rhonchi, no rales, no wheezing, and no accessory muscle usage. Abdominal: soft, nontender to palpation, no guarding, no appreciable organomegaly Ext: ROM intact. No gross muscle atrophy, no edema, no contractures Neuro: Speech clear, face symmetrical and CN II-XII grossly intact with no noted focal neuro deficits Psych: Alert and oriented to person, place, time, and situation. Appropriate and pleasant affect. A total of 36 minutes of time were spent preparing this complex discharge summary. Pt was discharged on 11/11/22 at 3:41 PM. Patient was seen independently by Nurse Practitioner. This document was prepared using [employer] dictation software. Please allow for errors in petroleum engineer while rare they do occur. I reviewed the documentation as provided by the ANA CRISTINA above, who is the original author of this note. I agree with the documented assessment and plan, with the following changes: none Patient Condition at Discharge: Stable Plan - Discharge Summary New Discharge Prescriptions: New Atorvastatin [Lipitor] 40 mg PO DAILY 30 Days #30 tab Doxycycline [Vibramycin] 100 mg PO BID 6 Days #12 cap Meclizine [Antivert] 25 mg PO QID PRN #60 tab PRN Reason: Vertigo lisinopriL [Zestril] 5 mg PO BID 30 Days #60 tab Discontinued metFORMIN HCL 500 mg PO DIRECTED Discharge Medication List Atorvastatin [Lipitor] 40 mg PO DAILY 30 Days #30 tab 11/11/22 [Rx] Doxycycline [Vibramycin] 100 mg PO BID 6 Days #12 cap 11/11/22 [Rx] Meclizine [Antivert] 25 mg PO QID PRN #60 tab 11/11/22 [Rx] lisinopriL [Zestril] 5 mg PO BID 30 Days #60 tab 11/11/22 [Rx] Follow up Appointment(s)/Referral(s): Wendi Moon MD [STAFF PHYSICIAN] - 2 Weeks Xu Costa DO [Doctor of Osteopathic Medicine] - 1 Week Renan Martines MD [STAFF PHYSICIAN] - 1 Week Erin Ann DDS [STAFF PHYSICIAN] - 3 Days Patient Instructions/Handouts: Dental Cavities (GEN), Sinusitis (GEN), Syncope (DC), Holter Monitor (GEN) Activity/Diet/Wound Care/Special Instructions: Activity: As tolerated. Take breaks as needed. Change positions slowly from lying to sitting and sitting to standing and standing before walking. Diet: Heart healthy and carb consistent diet. Avoid salts, or foods with hidden salts such as canned or boxed foods and frozen dinners. Extra salt makes your heart work harder and traps the fluid in your body for longer. Special Instructions: Take all of your medications as directed and remember to keep all of your doctor's appointments and follow-up as needed. Metformin may be held at this time until follow-up with your primary care doctor due to your reports of feeling as though you may have experienced episodes of hypoglycemia. Recommend continued monitoring of your blood glucose levels daily and documenting these findings in a daily log to bring with you to your next doctor's appointment. You were provided with a new glucose monitor at discharge. Also it is important to follow-up with ENT physician for evaluation of sinusitis as well as a dentist for dental carries. Lastly, you are being discharged home with event monitor. This will be worn as directed for 2 weeks and he will follow up with cardiology office to discuss report. Thank you for allowing us to participate in your care, it was truly a pleasure having you for our patient!!! Discharge/Stand Alone Forms: Who Do I Call?, Community Resources, Area PCPs Discharge Disposition: HOME SELF-CARE
[2022-11-11] MEDS ORDERED: VANCOMYCIN 1,750 MG in SODIUM CHLORIDE 0.9% 500 ML 500 ML IVPB SCH (16:00)
== END 2022-11-11 16:33 | disposition home or self-care (01) ==
LOC: EC 12:55 → 6NMEDSUR 19:09
PROVIDERS: ADMIT Internal Medicine; ATTEND Internal Medicine
DX: R55 Syncope and collapse (principal); W19.XXXA Unspecified fall, initial encounter; I08.1 Rheumatic disorders of both mitral and tricuspid valves; J01.90 Acute sinusitis, unspecified; K02.9 Dental caries, unspecified; E11.9 Type 2 diabetes mellitus without complications; I10 Essential (primary) hypertension; E78.5 Hyperlipidemia, unspecified; F41.9 Anxiety disorder, unspecified; Z79.84 Long term (current) use of oral hypoglycemic drugs; Z88.0 Allergy status to penicillin
CPT/HCPCS: 96376 ×4; 96361 ×5; 96365; 96366 ×3; 96372 ×4; 96375 ×2; 99285; 36415; 94760 ×2; 95816; 93005; 93306; 93270; 80061; 80053 ×2; 82565; 84484 ×2; 85025; 85027; 80202; 85610; 85730; 87040; 83036; 71046; 93880; 72125; 70486; 70450; G0378 ×4; J3370 ×3; J1200; J0780; J1885 ×4; J1170 ×4; J1644 ×3

== ENCOUNTER 2023-10-07 21:42 | Observation (INO) | payer OTHER ==
[2023-10-07] MEDS: SODIUM CHLORIDE 0.9% 1,000 ML IV STA (22:22)
[2023-10-07] MEDS: MECLIZINE 12.5 MG TAB PO STA (22:25)
[2023-10-07 22:34] LABS: Basophils % (A) 0 %; Eosinophils # (A) 0.2 k/uL (0-0.7); Eosinophils % (A) 2 %; HCT 47.4 % (39.0-53.0); HGB 15.6 gm/dL (13.0-17.5); Lymphocytes % (A) 28 %; MCH 28.2 pg (25.0-35.0); MCV 85.6 fL (80.0-100.0); Mean Platelet Volume 8.2; Monocytes # (A) 0.8 k/uL (0-1.0); Monocytes % (A) 7 %; Neutrophils # (A) 6.3 k/uL (1.3-7.7); Neutrophils % (A) 60 %; Platelet Count 295 k/uL (150-450); RBC 5.54 m/uL (4.30-5.90); WBC 10.6 k/uL (3.8-10.6)
[2023-10-07 22:37] LABS: ALT 27 U/L (4-49); AST 35 U/L (17-59); African American GFR (CKD) 30 (>60 ml/min/1.73 sqM); Albumin 4.9 g/dL (3.5-5.0); Alkaline Phosphatase 88 U/L (38-126); Anion Gap 15 mmol/L; Blood Urea Nitrogen 97 mg/dL (9-20); Calcium 9.8 mg/dL (8.4-10.2); Carbon Dioxide 16 mmol/L (22-30); Chloride 104 mmol/L (98-107); Creatine Kinase 126 U/L (55-170); Glucose 105 mg/dL (74-99); Magnesium 2.5 mg/dL (1.6-2.3); Non-African American GFR(CKD) 26 (>60 ml/min/1.73 sqM); Potassium 4.4 mmol/L (3.5-5.1); Sodium 135 mmol/L (137-145); Total Protein 7.6 g/dL (6.3-8.2)
[2023-10-07 22:39] LABS: INR 0.9 (<1.2); Partial Thromboplastin Time 24.4 sec (22.0-30.0)
[2023-10-08] MEDS: SODIUM CHLORIDE 0.9% 1,000 ML IV STA (00:10)
--- NOTE | 2023-10-08 01:04 | ED ---
General Adult HPI - General Chief complaint: Syncope Stated complaint: Dizziness Time Seen by Provider: 10/07/23 21:55 Source: patient, family, RN notes reviewed, old records reviewed Mode of arrival: ambulatory Limitations: no limitations - History of Present Illness Initial comments: Patient is a 58-year-old male who presents emergency department complaining of multiple syncopal episodes, lightheadedness, dehydration, striking his head mul tiple times. Patient states he was working outside on [employer] for approximately 8 hours during 90 degree weather a few days ago. States that since that time has been feeling lightheaded/dizzy. Has had a few fainting spells. Did hit his head at least twice over the last few days. States he feels unwell. Presents for further evaluation. Did see his PCP who diagnosed him with heat exhaustion. Denies any chest pain, shortness of breath, abdominal pain, nausea, vomiting. Endorses mild headache as well as lightheadedness. Denies any other acute complaints. Presents for further evaluation. Not on blood thinners. - Related Data Home Medications Medication Instructions Recorded Confirmed ARIPiprazole [Abilify] 5 mg PO DAILY 10/08/23 10/08/23 Atorvastatin [Lipitor] 20 mg PO HS 10/08/23 10/08/23 Ergocalciferol [Vitamin D2 (1250 1,250 mcg PO Q7D 10/08/23 10/08/23 Mcg = 90774 Iu)] Gabapentin [Neurontin] 400 mg PO TID 10/08/23 10/08/23 HYDROcodone/APAP 7.5-325MG [[place] 1 tab PO Q4-6H PRN 10/08/23 10/08/23 7.5-325] Ibuprofen [Motrin] 800 mg PO TID 10/08/23 10/08/23 Magnesium Oxide [Walker] 500 mg PO HS 10/08/23 10/08/23 Naloxone HCl [Narcan] 4 mg NASAL DIRECTED PRN 10/08/23 10/08/23 buPROPion XL [Wellbutrin XL] 150 mg PO DAILY 10/08/23 10/08/23 lisinopriL [Zestril] 5 mg PO DAILY 10/08/23 10/08/23 metFORMIN HCL ER [Glucophage XR] 500 mg PO DAILY 10/08/23 10/08/23 methocarbamoL [Robaxin-750] 750 mg PO BID PRN 10/08/23 10/08/23 rOPINIRole HCL [Requip] 0.5 mg PO TID 10/08/23 10/08/23 rOPINIRole HCL [Requip] 1 mg PO TID 10/08/23 10/08/23 tiZANidine [Zanaflex] 4 mg PO Q8HR PRN 10/08/23 10/08/23 Allergies Allergy/AdvReac Type Severity Reaction Status Date / Time Penicillins Allergy Rash/Hives Verified 10/08/23 11:46 Review of Systems ROS Statement: Those systems with pertinent positive or pertinent negative responses have been documented in the HPI. Review of Systems: CONST: Denies fever EYES: Denies blurry vision ENT: Denies nasal congestion C/V: Denies Chest pain RESP: Denies shortness of breath GI: Denies abdominal pain : Denies dysuria SKIN: Denies rash. MSK: Denies joint pain. NEURO: Endorses mild headache, lightheadedness ROS Other: All systems not noted in ROS Statement are negative. Past Medical History Past Medical History: Diabetes Mellitus, Hypertension Additional Past Medical History / Comment(s): hypercholestremia History of Any Multi-Drug Resistant Organisms: None Reported Past Surgical History: Hernia Repair Additional Past Surgical History / Comment(s): neck surgery, finger surgery Past Psychological History: Anxiety Smoking Status: Never smoker Past Alcohol Use History: Occasional Past Drug Use History: Marijuana General Exam - General Exam Comments Initial Comments: General: Appears in no acute distress. HEAD: Normal with no signs of head trauma. EYES: PERRLA, EOMI, conjunctiva normal, no discharge. Pupils 3 mm and equal bilaterally. ENT: Hearing grossly intact, normal oropharynx. Dry mucous membranes. RESPIRATORY: Clear breath sounds bilaterally. No wheezes, rales, or rhonchi. C/V: Regular rate and rhythm. S1 and S2 auscultated, no edema, peripheral pulses 2+ and intact throughout ABD: Abd is soft, nontender, nondistended EXT: Normal range of motion, no obvious deformity SKIN: No rashes or lesions observed on exposed skin. NEURO: Alert and oriented x 4. Cranial nerves II-XII intact. No focal sensory or strength deficits. GCS of 15. NIH is 0. Normal cerebellar function as evident by normal finger-nose testing and normal gotn-hb-qjoo testing. Limitations: no limitations Course Vital Signs 10/07/23 10/08/23 10/08/23 21:45 01:22 05:39 Temperature 97.9 F Pulse Rate 81 76 71 Pulse Rate [ Sitting] Pulse Rate [ Standing] Pulse Rate [ Supine] Respiratory 18 16 16 Rate Blood Pressure 106/71 116/68 99/59 Blood Pressure [Sitting] Blood Pressure [Standing] Blood Pressure [Supine] O2 Sat by Pulse 96 96 97 Oximetry 10/08/23 10/08/23 10/08/23 07:50 11:32 12:58 Temperature 98.7 F 98.7 F Pulse Rate 73 72 Pulse Rate [ 75 Sitting] Pulse Rate [ 86 Standing] Pulse Rate [ 70 Supine] Respiratory 16 18 18 Rate Blood Pressure 117/70 Blood Pressure 105/63 [Sitting] Blood Pressure 111/72 [Standing] Blood Pressure 111/75 [Supine] O2 Sat by Pulse 98 97 96 Oximetry Medical Decision Making - Medical Decision Making Was pt. sent in by a medical professional or institution (, PA, CAN WORKER, urgent c are, hospital, or group home...) When possible be specific @ -No Did you speak to anyone other than the patient for history (EMS, parent, family, police, friend...)? What history was obtained from this source @ -No Did you review nursing and triage notes (agree or disagree)? Why? @ -I reviewed and agree with nursing and triage notes Were old charts reviewed (outside hosp., previous admission, EMS record, old EKG, old radiological studies, urgent care reports/EKG's, group home records)? Report findings @ -Compared with old EKG from October 2022 and T wave inversions in the inferior leads are new. Differential Diagnosis (chest pain, altered mental status, abdominal pain women, abdominal pain men, vaginal bleeding, weakness, fever, dyspnea, syncope, headache, dizziness, GI bleed, back pain, seizure, CVA, palpatations, mental health, musculoskeletal)? @ -Differential Dizziness: Benign paroxysmal positional Vertigo, Menieres disease, otitis media, acoustic neuroma, vertebrobasilar insufficiency, cerebellar stroke, encephalitis, hypovolemic, arrhythmia, coronary artery syndrome, anemia, this is not meant to be an all-inclusive list EKG interpreted by me (3pts min.). @ -As above X-rays interpreted by me (1pt min.). @ -Chest x-ray reveals no obvious acute cardiopulmonary process. CT interpreted by me (1pt min.). @ -CT brain revealed no obvious acute intracranial process. U/S interpreted by me (1pt. min.). @ -None done What testing was considered but not performed or refused? (CT, X-rays, U/S, labs)? Why? @ -None What meds were considered but not given or refused? Why? @ -None Did you discuss the management of the patient with other professionals (professionals i.e. , PA, CAN WORKER, lab, RT, psych nurse, social media project manager, prop cutter, teacher, u.s. revenue officer, case management assistant)? Give summary @ -Spoke with Dr. Riley who accepted the admission. Was smoking cessation discussed for >3mins.? @ -No Was critical care preformed (if so, how long)? @ -No Were there social determinants of health that impacted care today? How? (Homelessness, low income, unemployed, alcoholism, drug addiction, transportation, low edu. Level, literacy, decrease access to med. care, fpc, rehab)? @ -No Was there de-escalation of care discussed even if they declined (Discuss DNR or withdrawal of care, Hospice)? DNR status @ -No What co-morbidities impacted this encounter? (DM, HTN, Smoking, COPD, CAD, Cancer, CVA, ARF, Chemo, Hep., AIDS, mental health diagnosis, sleep apnea, morbid obesity)? @ -None Was patient admitted / discharged? Hospital course, mention meds given and route, prescriptions, significant lab abnormalities, going to OR and other pertinent info. @ -Based on the patient's presentation and physical exam, patient presents emergency department following multiple syncopal episodes as well as feeling of lightheadedness and weakness. Has been ongoing for multiple days. We will obtain broad workup including CT brain as well as chest x-ray and cardiac workup. Patient in agreement this plan. Vital signs within acceptable limits. EKG does show new T wave inversions in the inferior leads. Laboratory studies remarkable for an WILLY with a BUN of 97 and creatinine of 2.64. Viral swabs negative. Troponin undetectable. Imaging shows no obvious acute process. On re-evaluation, patient was updated. He will be admitted due ot the WILLY and new EKG findings. He was in agreement with this plan. Spoke with the admitting physician, Dr. Riley who accepted the admission. Cardiology consulted for new EKG changes. Undiagnosed new problem with uncertain prognosis? @ -No Drug Therapy requiring intensive monitoring for toxicity (Heparin, Nitro, Insulin, Cardizem)? @ -No Were any procedures done? @ -No Diagnosis/symptom? @ -Acute kidney injury, dehydration, dizziness, New T wave inversions Acute, or Chronic, or Acute on Chronic? @ -Acute Uncomplicated (without systemic symptoms) or Complicated (systemic symptoms)? @ -Complicated Side effects of treatment? @ -No Exacerbation, Progression, or Severe Exacerbation? @ -No Poses a threat to life or bodily function? How? (Chest pain, [place], [place], pneumonia, PE, COPD, DKA, ARF, appy, cholecystitis, CVA, Diverticulitis, Homicidal, Suicidal, threat to staff... and all critical care pts) @ -Yes - Lab Data Result diagrams: 10/07/23 22:02 10/08/23 07:20 Lab Results 10/07/23 10/07/23 10/07/23 Range/Units 22:02 22:02 22:02 WBC 10.6 (3.8-10.6) k/uL RBC 5.54 (4.30-5.90) m/uL Hgb 15.6 (13.0-17.5) gm/dL Hct 47.4 (39.0-53.0) % MCV 85.6 (80.0-100.0) fL MCH 28.2 (25.0-35.0) pg MCHC 33.0 (31.0-37.0) g/dL RDW 13.0 (11.5-15.5) % Plt Count 295 (150-450) k/uL MPV 8.2 Neutrophils % 60 % Lymphocytes % 28 % Monocytes % 7 % Eosinophils % 2 % Basophils % 0 % Neutrophils # 6.3 (1.3-7.7) k/uL Lymphocytes # 3.0 (1.0-4.8) k/uL Monocytes # 0.8 (0-1.0) k/uL Eosinophils # 0.2 (0-0.7) k/uL Basophils # 0.0 (0-0.2) k/uL PT 10.0 (10.0-12.5) sec INR 0.9 (<1.2) APTT 24.4 (22.0-30.0) sec Sodium 135 L (137-145) mmol/L Potassium 4.4 (3.5-5.1) mmol/L Chloride 104 (98-107) mmol/L Carbon Dioxide 16 L (22-30) mmol/L Anion Gap 15 mmol/L BUN 97 H (9-20) mg/dL Creatinine 2.64 H (0.66-1.25) mg/dL Est GFR (CKD-EPI)AfAm 30 (>60 ml/min/1.73 sqM) Est GFR (CKD-EPI)NonAf 26 (>60 ml/min/1.73 sqM) Glucose 105 H (74-99) mg/dL Plasma Lactic Acid Vinny (0.7-2.0) mmol/L Calcium 9.8 (8.4-10.2) mg/dL Magnesium 2.5 H (1.6-2.3) mg/dL Total Bilirubin 1.0 (0.2-1.3) mg/dL AST 35 (17-59) U/L ALT 27 (4-49) U/L Alkaline Phosphatase 88 (38-126) U/L Creatine Kinase 126 (55-170) U/L Troponin I (0.000-0.034) ng/mL Total Protein 7.6 (6.3-8.2) g/dL Albumin 4.9 (3.5-5.0) g/dL Influenza Type A (PCR) (Not Detectd) Influenza Type B (PCR) (Not Detectd) RSV (PCR) (Not Detectd) SARS-CoV-2 (PCR) (Not Detectd) 10/07/23 10/07/23 10/07/23 Range/Units 22:02 22:02 22:26 WBC (3.8-10.6) k/uL RBC (4.30-5.90) m/uL Hgb (13.0-17.5) gm/dL Hct (39.0-53.0) % MCV (80.0-100.0) fL MCH (25.0-35.0) pg MCHC (31.0-37.0) g/dL RDW (11.5-15.5) % Plt Count (150-450) k/uL MPV Neutrophils % % Lymphocytes % % Monocytes % % Eosinophils % % Basophils % % Neutrophils # (1.3-7.7) k/uL Lymphocytes # (1.0-4.8) k/uL Monocytes # (0-1.0) k/uL Eosinophils # (0-0.7) k/uL Basophils # (0-0.2) k/uL PT (10.0-12.5) sec INR (<1.2) APTT (22.0-30.0) sec Sodium (137-145) mmol/L Potassium (3.5-5.1) mmol/L Chloride (98-107) mmol/L Carbon Dioxide (22-30) mmol/L Anion Gap mmol/L BUN (9-20) mg/dL Creatinine (0.66-1.25) mg/dL Est GFR (CKD-EPI)AfAm (>60 ml/min/1.73 sqM) Est GFR (CKD-EPI)NonAf (>60 ml/min/1.73 sqM) Glucose (74-99) mg/dL Plasma Lactic Acid Vinny 1.2 (0.7-2.0) mmol/L Calcium (8.4-10.2) mg/dL Magnesium (1.6-2.3) mg/dL Total Bilirubin (0.2-1.3) mg/dL AST (17-59) U/L ALT (4-49) U/L Alkaline Phosphatase (38-126) U/L Creatine Kinase (55-170) U/L Troponin I <0.012 (0.000-0.034) ng/mL Total Protein (6.3-8.2) g/dL Albumin (3.5-5.0) g/dL Influenza Type A (PCR) Not Detected (Not Detectd) Influenza Type B (PCR) Not Detected (Not Detectd) RSV (PCR) Not Detected (Not Detectd) SARS-CoV-2 (PCR) Not Detected (Not Detectd) - EKG Data -: EKG Interpreted by Me EKG Comments: 12-lead Electrocardiogram Interpretation Note EKG was reviewed and interpreted by myself. 12-lead ECG performed at 2200 is interpreted by me as revealing normal sinus rhythm at a rate of 81 beats per minute. [place] is normal. Parables 136 ms, QRS durations 110 ms, QTc is 385 ms. New T wave inversions in leads II, III, aVF... R wave progression across the precordium was satisfactory.. Disposition Clinical Impression: WILLY (acute kidney injury), Dehydration, T wave inversion in EKG, Dizziness Disposition: ADMITTED IP TO THIS HOSP Condition: Stable Time of Disposition: 01:00
[2023-10-08] MEDS ORDERED: NALOXONE 0.4 MG/ML 1 ML VIAL IV PRN (01:08)
[2023-10-08] MEDS ORDERED: ONDANSETRON 4 MG/2 ML VIAL IVP PRN (01:08)
[2023-10-08] MEDS ORDERED: ACETAMINOPHEN TAB 325 MG TAB PO PRN (01:08)
--- NOTE | 2023-10-08 01:24 | P.HPIM ---
History of Present Illness H&P Date: 10/08/23 Chief Complaint: syncope 58-year-old male with hypertension Patient coming in for evaluation of syncopal episodes patient was diagnosed with heat exhaustion as he was working out there in the sun and heat over the past few days, patient had an episode of syncope yesterday and another episode this morning for which she decided to come into the hospital he reports head injury and falling denies being on any blood thinners. He denies any focal neurodeficits at this time denies any chest pain trouble breathing denies any irregular heartbeats or heart racing or palpitations. Patient denies any cough fever or chill denies any changes in bowel or urinary habits In the ED he was found to have abnormal renal function and T wave inversions on EKG with normal troponins and no report of chest pain. Creatinine kinase was within normal limits Patient denies any illicit drugs or heavy alcohol CT brain done in the ED still pending radiologist read review of systems Pertinent positives as noted in HPI. All other systems were reviewed and are negative on exam Constitutional: No acute distress, conversant, pleasant Eyes: Anicteric sclerae, moist conjunctiva, Pupils equal round reactive to light ENMT: NC/AT Oropharynx clear, no erythema, or exudates Neck: Supple, no masses, or JVD No carotid bruits No thyromegaly Lungs: Clear to auscultation Clear to percussion Normal respiratory effort, no accessory muscle use Cardiovascular: Heart regular in rate and rhythm, No murmurs, gallops, or rubs No peripheral edema Abdominal: Soft Nontender, no guarding, rebound or rigidity Abdomen moving with respiration Normoactive bowel sounds Extremities: No digital cyanosis No clubbing Pedal pulses intact and symmetrical Radial pulses intact and symmetrical No calf tenderness Psychiatric: Alert and oriented to person, place and time Appropriate affect fair judgement Neuro Muscles Strength 5/5 in all 4 extremities Sensation to light touch grossly present throughout Cranial nerves II-XII grossly intact Past Medical History Past Medical History: Diabetes Mellitus, Hypertension Additional Past Medical History / Comment(s): hypercholestremia History of Any Multi-Drug Resistant Organisms: None Reported Past Surgical History: Hernia Repair Additional Past Surgical History / Comment(s): neck surgery, finger surgery Past Psychological History: Anxiety Smoking Status: Never smoker Past Alcohol Use History: Occasional Past Drug Use History: Marijuana Medications and Allergies Home Medications Medication Instructions Recorded Confirmed Type Atorvastatin [Lipitor] 40 mg PO DAILY 30 Days #30 tab 11/11/22 Rx Doxycycline [Vibramycin] 100 mg PO BID 6 Days #12 cap 11/11/22 Rx Meclizine [Antivert] 25 mg PO QID PRN #60 tab 11/11/22 Rx lisinopriL [Zestril] 5 mg PO BID 30 Days #60 tab 11/11/22 Rx Allergies Allergy/AdvReac Type Severity Reaction Status Date / Time Penicillins Allergy Rash/Hives Verified 11/08/22 15:26 Physical Exam Vitals: Vital Signs Temp Pulse Resp BP Pulse Ox 10/07/23 21:45 97.9 F 81 18 106/71 96 Intake and Output 10/07/23 10/07/23 10/08/23 14:59 22:59 06:59 Other: Weight 77.111 kg Results CBC & Chem 7: 10/07/23 22:02 10/07/23 22:02 Labs: Abnormal Lab Results - Last 24 Hours (Table) 10/07/23 Range/Units 22:02 Sodium 135 L (137-145) mmol/L Carbon Dioxide 16 L (22-30) mmol/L BUN 97 H (9-20) mg/dL Creatinine 2.64 H (0.66-1.25) mg/dL Glucose 105 H (74-99) mg/dL Magnesium 2.5 H (1.6-2.3) mg/dL Assessment and Plan Assessment: 58-year-old male with hypertension coming in for evaluation of syncopal episode patient was diagnosed with heat exhaustion due to working in the hot weather under the sun over the past few days I discussed the case with ED doctor and accepted the admission for recurrent syncopal episodes to rule out any underlying cardiac problems with anticipated length of stay less than 2 midnights Recurrent syncopal episode most likely secondary to dehydration rule out any underlying cardiac conditions Cardiology consult EKG showed T wave inversion in inferior leads, no report of chest pain or shortness of breath Troponins negative Cardiac monitoring Monitor vital signs Fall precautions Acute kidney injury most likely secondary to prerenal ATN Follow-up renal function Check urine analysis Monitor urine output Status post both 1 L normal saline bolus Continue with normal saline 130 cc/h Avoid nephrotoxic meds Hold lisinopril Creatinine 2.6 BUN 90 potassium 4.4 Creatinine kinase within normal limits Hyperlipidemia Continue statin Follow-up CT of the brain radiology report Full code DVT prophylaxis heparin subcu 5000 units 3 times daily
[2023-10-08 03:37] LABS: Appearance,Urine Clear (Clear); Bilirubin,Urine Negative (Negative); Blood,Urine Negative (Negative); Color,Urine Colorless; Glucose,Urine (UA) Negative (Negative); Ketones,Urine Negative (Negative); Leukocyte Esterase,Urine Negative (Negative); Nitrite,Urine Negative (Negative); PH, Urine 5.5 (5.0-8.0); Protein,Urine Negative (Negative); Specific Gravity,Urine 1.014 (1.001-1.035); Urobilinogen,Urine <2.0 mg/dL (<2.0)
[2023-10-08] MEDS: HEPARIN SODIUM,PORCINE 5,000 UNIT/ML 1 ML VIAL SQ SCH (07:50)
[2023-10-08] MEDS: ATORVASTATIN 40 MG TAB PO SCH (07:50)
[2023-10-08 08:19] LABS: African American GFR (CKD) 48 (>60 ml/min/1.73 sqM); Anion Gap 8 mmol/L; Blood Urea Nitrogen 79 mg/dL (9-20); Calcium 9.2 mg/dL (8.4-10.2); Carbon Dioxide 18 mmol/L (22-30); Chloride 110 mmol/L (98-107); Glucose 105 mg/dL (74-99); Non-African American GFR(CKD) 42 (>60 ml/min/1.73 sqM); Potassium 4.2 mmol/L (3.5-5.1); Sodium 136 mmol/L (137-145)
[2023-10-08] MEDS: ASPIRIN 81 MG PO SCH (09:44)
[2023-10-08] MEDS: SODIUM CHLORIDE 0.9% 1,000 ML IV SCH (09:45)
--- NOTE | 2023-10-08 10:43 | P.CRDCN ---
History of Present Illness History of present illness: HISTORY OF PRESENT ILLNESS: This is a 58-year-old male with a past medical history significant for diabetes and hyperlipidemia. Patient establish care with Dr. Dumont in 2019 but has n ot been to the office since. We have been asked to see the patient in consultation for T wave inversions. Patient examined at the bedside. Patient states for the past 3 days he has been working outside with temperatures in the 90s. He states that he started to have episodes of nausea and vomiting at home. He states that when he would stand up he would get dizzy and lightheaded. He denied having any chest pain or pressure. Denies any shortness of breath. He reports having 3 syncopal episodes at home. Patient reports daily marijuana use. He denies any nicotine use or alcohol use. DIAGNOSTICS: - EKG reveals sinus mechanism with T wave inversions inferiorly, new from EKG in October 2022 - Chest xray pending at the time of dictation - Laboratory data: WBC 10.6. Hemoglobin 15.6. Platelet count 298. Sodium 135. Potassium 4.4. BUN 97. Creatinine 2.64. Troponin negative x 1 - Current home cardiac medications include lisinopril 5 mg twice a day and Lipitor 40 mg at night - Most recent echocardiogram obtained in October 2022 ejection fraction 55 to 60%, mild MR, mild TR REVIEW OF SYSTEMS: At the time of my exam: CONSTITUTIONAL: Denies fever or chills. HEENT: Denies blurred vision, vision changes, or eye pain. Denies hemoptysis CARDIOVASCULAR: Denies chest pain. Denies orthopnea. Denies PND. Denies palpitations RESPIRATORY: Denies shortness of breath. GASTROINTESTINAL: Denies abdominal pain. Denies nausea or vomiting. HEMATOLOGIC: Denies bleeding disorders. GENITOURINARY: Denies any blood in urine. SKIN: Denies pruitis. Denies rash. PHYSICAL EXAM: VITAL SIGNS: Reviewed. GENERAL: Well-developed in no acute distress. HEENT: Head is normocephalic. Pupils are equal, round. Sclerae anicteric. Mucous membranes of the mouth are moist. Neck supple. No JVD or thyromegaly LUNGS: Respirations even and unlabored. Lungs essentially clear to auscultation bilaterally. HEART: Regular rate and rhythm. S1 and S2 heard. ABDOMEN: Soft. Nondistended. Nontender. EXTREMITIES: Normal range of motion. No clubbing or cyanosis. Peripheral pulses intact. No lower extremity edema NEUROLOGIC: Awake and alert. Oriented x 3. ASSESSMENT: Syncope Abnormal EKG with T wave inversions inferiorly Acute kidney injury History of syncope Diabetes Hyperlipidemia Marijuana use PLAN: Obtain 2D echo to assess cardiac structure and function Hold lisinopril secondary to WILLY Continue IV fluid hydration. Monitor kidney function. Will plan for outpatient stress testing Recommend abstinence from marijuana use Further recommendations pending patient course Nurse practitioner note has been reviewed by physician. Signing provider agrees with the documented findings, assessment, and plan of care documented by PURCHASE ANALYST as a scribe. Past Medical History Past Medical History: Diabetes Mellitus, Hypertension Additional Past Medical History / Comment(s): hypercholestremia History of Any Multi-Drug Resistant Organisms: None Reported Past Surgical History: Hernia Repair Additional Past Surgical History / Comment(s): neck surgery, finger surgery Past Psychological History: Anxiety Smoking Status: Never smoker Past Alcohol Use History: Occasional Past Drug Use History: Marijuana Medications and Allergies Home Medications Medication Instructions Recorded Confirmed Type Atorvastatin [Lipitor] 40 mg PO DAILY 30 Days #30 tab 11/11/22 Rx Doxycycline [Vibramycin] 100 mg PO BID 6 Days #12 cap 11/11/22 Rx Meclizine [Antivert] 25 mg PO QID PRN #60 tab 11/11/22 Rx lisinopriL [Zestril] 5 mg PO BID 30 Days #60 tab 11/11/22 Rx Allergies Allergy/AdvReac Type Severity Reaction Status Date / Time Penicillins Allergy Rash/Hives Verified 11/08/22 15:26 Physical Exam Vitals: Vital Signs Temp Pulse Resp BP Pulse Ox 10/08/23 07:50 98.7 F 73 16 117/70 98 10/08/23 05:39 71 16 99/59 97 10/08/23 01:22 76 16 116/68 96 10/07/23 21:45 97.9 F 81 18 106/71 96 Intake and Output 10/07/23 10/08/23 10/08/23 22:59 06:59 14:59 Other: Weight 77.111 kg Results 10/07/23 22:02 10/08/23 07:20 Cardiac Enzymes 10/07/23 10/07/23 Range/Units 22:02 22:02 AST 35 (17-59) U/L Troponin I <0.012 (0.000-0.034) ng/mL Coagulation 10/07/23 Range/Units 22:02 PT 10.0 (10.0-12.5) sec APTT 24.4 (22.0-30.0) sec CBC 10/07/23 Range/Units 22:02 WBC 10.6 (3.8-10.6) k/uL RBC 5.54 (4.30-5.90) m/uL Hgb 15.6 (13.0-17.5) gm/dL Hct 47.4 (39.0-53.0) % Plt Count 295 (150-450) k/uL Comprehensive Metabolic Panel 10/07/23 Range/Units 22:02 Sodium 135 L (137-145) mmol/L Potassium 4.4 (3.5-5.1) mmol/L Chloride 104 (98-107) mmol/L Carbon Dioxide 16 L (22-30) mmol/L BUN 97 H (9-20) mg/dL Creatinine 2.64 H (0.66-1.25) mg/dL Glucose 105 H (74-99) mg/dL Calcium 9.8 (8.4-10.2) mg/dL AST 35 (17-59) U/L ALT 27 (4-49) U/L Alkaline Phosphatase 88 (38-126) U/L Total Protein 7.6 (6.3-8.2) g/dL Albumin 4.9 (3.5-5.0) g/dL Current Medications Generic Name Dose Route Start Last Admin Trade Name Freq PRN Reason Stop Dose Admin Acetaminophen 650 mg 10/08/23 01:08 Acetaminophen Tab 325 Mg Tab PO Q6HR PRN Mild Pain or Fever > 100.5 Atorvastatin Calcium 40 mg 10/08/23 09:00 10/08/23 07:50 Atorvastatin 40 Mg Tab PO 40 mg DAILY DIONISIO Administration Heparin Sodium (Porcine) 5,000 unit 10/08/23 08:00 10/08/23 07:50 Heparin Sodium,Porcine 5,000 Unit/Ml 1 Ml Vial SQ 5,000 unit Q8HR DIONISIO Administration Naloxone HCl 0.2 mg 10/08/23 01:08 Naloxone 0.4 Mg/Ml 1 Ml Vial IV Q2M PRN Opioid Reversal Ondansetron HCl 4 mg 10/08/23 01:08 Ondansetron 4 Mg/2 Ml Vial IVP Q8HR PRN Nausea And Vomiting Intake and Output 10/07/23 10/08/23 10/08/23 22:59 06:59 14:59 Other: Weight 77.111 kg 10/07/23 22:02 10/07/23 22:02
--- NOTE | 2023-10-08 11:13 | XR ---
EXAM: XR Chest, 2 Views CLINICAL HISTORY: ITS.REASON XR Reason: syncope TECHNIQUE: Frontal and lateral views of the chest. COMPARISON: No relevant prior studies available. FINDINGS: Lungs: Unremarkable. No consolidation. Pleural space: Unremarkable. No pneumothorax. Heart: Unremarkable. No cardiomegaly. Mediastinum: Unremarkable. Normal mediastinal contour. Bones/joints: Unremarkable. No acute fracture. IMPRESSION: No consolidation.
--- NOTE | 2023-10-08 11:13 | CT ---
EXAM: CT Head Without Intravenous Contrast CLINICAL HISTORY: ITS.REASON CT Reason: syncope TECHNIQUE: Axial computed tomography images of the head/brain without intravenous contrast. CTDI is 49.1 mGy and DLP is 1154.4 mGy-cm. This CT exam was performed using one or more of the following dose reduction techniques: automated exposure control, adjustment of the mA and/or kV according to patient size, and/or use of iterative reconstruction technique. COMPARISON: No relevant prior studies available. FINDINGS: No acute intracranial hemorrhage. No midline shift or mass effect. The territorial herrera-white matter differentiation is maintained throughout. The ventricles and sulci are commensurate with age. The visualized orbits appear grossly unremarkable. The calvarium is intact. The visualized paranasal sinuses and mastoid air cells are grossly clear. IMPRESSION: No acute intracranial hemorrhage, midline shift, or mass effect.
[2023-10-08] MEDS: LACTATED RINGERS 1,000 ML IV SCH (11:29)
[2023-10-08] MEDS ORDERED: DEXTROSE 50% SYRINGE 50 ML IVP PRN ×2 (15:52)
[2023-10-08 16:25] LABS: Glucose,Whole Blood 92 mg/dL (70-110)
--- NOTE | 2023-10-08 16:25 | CA ---
Transthoracic Echo Report Name: Tim Coto Age: 58 Gender: M : 1965 Exam Date: 10/08/2023 13:46 Exam Location: [facility] Ht (in): 63 Wt (lb): 170 Ordering Physician: Jolene Milner Attending/Referring Phys: [id number], Alf Relocation Director Samantha Loo RDCS Procedure CPT: Indications: abnormal EKG, LV function Cardiac Hx: Technical Quality: Fair Contrast 1: Total Dose (mL): Contrast 2: Total Dose (mL): MEASUREMENTS (Male / Female) Normal Values 2D ECHO LV Diastolic Diameter PLAX 4.7 cm 4.2 - 5.9 / 3.9 - 5.3 cm LV Systolic Diameter PLAX 3.1 cm IVS Diastolic Thickness 1.3 cm 0.6 - 1.0 / 0.6 - 0.9 cm LVPW Diastolic Thickness 1.3 cm 0.6 - 1.0 / 0.6 - 0.9 cm LV Relative Wall Thickness 0.6 RV Internal Dim ED PLAX 3.4 cm LA Volume 46.3 cm??? 18 - 58 / 22 - 52 cm??? LA Volume Index 24.7 cm???/m??? 16 - 28 cm???/m??? M-MODE Aortic Root Diameter MM 2.9 cm LA Systolic Diameter MM 4.3 cm LA Ao Ratio MM 1.5 AV Cusp Separation MM 1.6 cm DOPPLER AV Peak Velocity 161.2 cm/s AV Peak Gradient 10.4 mmHg AV Mean Velocity 114.5 cm/s AV Mean Gradient 5.9 mmHg AV Velocity Time Integral 30.9 cm LVOT Peak Velocity 102.1 cm/s LVOT Peak Gradient 4.2 mmHg LVOT Velocity Time Integral 18.1 cm MV Area PHT 3.7 cm??? Mitral E Point Velocity 89.8 cm/s Mitral A Point Velocity 98.9 cm/s Mitral E to A Ratio 0.9 MV Deceleration Time 205.9 ms MV E' Velocity 8.4 cm/s Mitral E to MV E' Ratio 10.7 TR Peak Velocity 143.3 cm/s TR Peak Gradient 8.2 mmHg Right Ventricular Systolic Press 13.2 mmHg FINDINGS Left Ventricle Mildly increased left ventricular wall thickness. Left ventricular cavity size normal. Normal left ventricular systolic function with no obvious regional wall motion abnormalities. Left ventricular ejection fraction is estimated at 55-60 %. Indeterminate diastolic dysfunction. Right Ventricle Normal right ventricular size and function. Right ventricular systolic pressure within normal limits. Right Atrium Normal right atrial size. Left Atrium Normal left atrial size. Mitral Valve Structurally normal mitral valve. No mitral stenosis. Mitral valve thickened. Mitral annular calcification. Trace to mild mitral regurgitation. Aortic Valve Trileaflet aortic valve. No aortic valve stenosis or regurgitation. Tricuspid Valve Structurally normal tricuspid valve. Mild tricuspid regurgitation. Pulmonic Valve Structurally normal pulmonic valve. Pericardium No pericardial effusion. Aorta Normal size aortic root and proximal ascending aorta. CONCLUSIONS Left ventricular ejection fraction is estimated at 55-60 %. No obvious regional wall motion abnormality Normal LV chamber size and wall thickness Normal RA and LA size. Normal RV size and systolic function No significant valvular dysfunction other than mild MR No significant difference when compared to prior echo from 10/2022 Previewed by: Dr Sunny Patel (Electronically Signed) Final Date: 08 October 2023 16:24
[2023-10-08] MEDS: INSULIN ASPART (NovoLOG) 100 UNIT/ML VIAL SQ SCH (16:31)
[2023-10-08] MEDS ORDERED: methocarbamoL 750 MG TAB PO PRN (16:34)
[2023-10-08] MEDS: GABAPENTIN 400 MG CAP PO SCH (16:42)
[2023-10-08] MEDS: HYDROcodone/APAP 7.5-325MG 1 EACH TAB PO PRN (16:42)
[2023-10-08 20:10] LABS: Glucose,Whole Blood 104 mg/dL (70-110)
[2023-10-09 05:59] LABS: Glucose,Whole Blood 105 mg/dL (70-110)
[2023-10-09 08:40] LABS: African American GFR (CKD) >90 (>60 ml/min/1.73 sqM); Anion Gap 5 mmol/L; Blood Urea Nitrogen 36 mg/dL (9-20); Calcium 9.2 mg/dL (8.4-10.2); Carbon Dioxide 23 mmol/L (22-30); Chloride 110 mmol/L (98-107); Glucose 143 mg/dL (74-99); Non-African American GFR(CKD) >90 (>60 ml/min/1.73 sqM); Potassium 4.9 mmol/L (3.5-5.1); Sodium 138 mmol/L (137-145)
[2023-10-09 09:16] VITALS: BP 108/55; PULSE 70; RESP 18; TEMP 97.7
[2023-10-09] MEDS: ARIPiprazole 5 MG TAB PO SCH (09:18)
[2023-10-09] MEDS: buPROPion XL 150 MG TAB.ER.24H PO SCH (09:18)
--- NOTE | 2023-10-09 10:46 | P.DS ---
Providers Date of admission: 10/08/23 01:08 Expected date of discharge: 10/09/23 Attending physician: Dino Riley MD Consults: 10/08/23 01:08 Consult Physician Routine Consulting Provider: [facility] Consult Reason/Comments: new t wave inversions Do you want consulting provider notified?: Yes Primary care physician: [facility] Course: Mr. Coto presented after several syncopal events. 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 He was feeling ill at home with lightheadedness with standing. He had several syncopal events prompting him to come to the ER. In the ER he was found to have acute kidney injury which resolved with IV fluids. He was monitored on telemetry without any significant arrhythmias. Echocardiogram was unremarkable. On today's evaluation, he feels well and ready to be discharged home. States he was up and walking to the bathroom without any lightheadedness. He is not having any shortness of breath, chest pain or any other symptoms. He is advised to follow-up with his primary care provider within 1 week. He is advised to re turn to the ED with any recurrent syncope. Follow-up labs can be arranged by his primary care physician. All questions were answered. Discharge diagnoses 1. Syncope, likely secondary to orthostatic hypotension, resolved 2. Acute kidney injury, resolved Discharge time greater than 30 minutes Patient Condition at Discharge: Good Plan - Discharge Summary Discharge Rx Participant: No New Discharge Prescriptions: Continue Gabapentin [Neurontin] 400 mg PO TID Magnesium Oxide [Walker] 500 mg PO HS ARIPiprazole [Abilify] 5 mg PO DAILY methocarbamoL [Robaxin-750] 750 mg PO BID PRN PRN Reason: Muscle Spasm rOPINIRole HCL [Requip] 1 mg PO TID metFORMIN HCL ER [Glucophage XR] 500 mg PO DAILY Atorvastatin [Lipitor] 20 mg PO HS Naloxone HCl [Narcan] 4 mg NASAL DIRECTED PRN PRN Reason: Opioid Reversal tiZANidine [Zanaflex] 4 mg PO Q8HR PRN PRN Reason: Muscle Spasm lisinopriL [Zestril] 5 mg PO DAILY HYDROcodone/APAP 7.5-325MG [[place] 7.5-325] 1 tab PO Q4-6H PRN PRN Reason: pain Ergocalciferol [Vitamin D2 (1250 Mcg = 59039 Iu)] 1,250 mcg PO Q7D rOPINIRole HCL [Requip] 0.5 mg PO TID buPROPion XL [Wellbutrin XL] 150 mg PO DAILY Discontinued Ibuprofen [Motrin] 800 mg PO TID Discharge Medication List ARIPiprazole [Abilify] 5 mg PO DAILY 10/08/23 [History] Atorvastatin [Lipitor] 20 mg PO HS 10/08/23 [History] Ergocalciferol [Vitamin D2 (1250 Mcg = 15746 Iu)] 1,250 mcg PO Q7D 10/08/23 [History] Gabapentin [Neurontin] 400 mg PO TID 10/08/23 [History] HYDROcodone/APAP 7.5-325MG [[place] 7.5-325] 1 tab PO Q4-6H PRN 10/08/23 [History] Magnesium Oxide [Walker] 500 mg PO HS 10/08/23 [History] Naloxone HCl [Narcan] 4 mg NASAL DIRECTED PRN 10/08/23 [History] buPROPion XL [Wellbutrin XL] 150 mg PO DAILY 10/08/23 [History] lisinopriL [Zestril] 5 mg PO DAILY 10/08/23 [History] metFORMIN HCL ER [Glucophage XR] 500 mg PO DAILY 10/08/23 [History] methocarbamoL [Robaxin-750] 750 mg PO BID PRN 10/08/23 [History] rOPINIRole HCL [Requip] 0.5 mg PO TID 10/08/23 [History] rOPINIRole HCL [Requip] 1 mg PO TID 10/08/23 [History] tiZANidine [Zanaflex] 4 mg PO Q8HR PRN 10/08/23 [History] Follow up Appointment(s)/Referral(s): Fredi Pantoja DO [Primary Care Provider] - 1-2 days Patient Instructions/Handouts: Heat Exhaustion (ED) Discharge Disposition: HOME SELF-CARE Plan of Treatment: Please continue your home medications except for ibuprofen, please only use Tylenol for pain Please return to the ER immediately if you have any recurrent episodes of syncope Please follow-up with your primary care physician within 1 week
[2023-10-09 11:39] LABS: Glucose,Whole Blood 101 mg/dL (70-110)
--- NOTE | 2023-10-09 12:14 | P.PN ---
Subjective HISTORY OF PRESENT ILLNESS: This is a 58-year-old male with a past medical history significant for diabetes and hyperlipidemia. Patient establish care with Dr. Dumont in 2019 but has not been to the office since. We have been asked to see the patient in consultation for T wave inversions. Patient examined at the bedside. Patient states for the past 3 days he has been working outside with temperatures in the 90s. He states that he started to have episodes of nausea and vomiting at home. He states that when he would stand up he would get dizzy and lightheaded. He denied having any chest pain or pressure. Denies any shortness of breath. He reports having 3 syncopal episodes at home. Patient reports daily marijuana use. He denies any nicotine use or alcohol use. DIAGNOSTICS: - EKG reveals sinus mechanism with T wave inversions inferiorly, new from EKG in October 2022 - Chest xray pending at the time of dictation - Laboratory data: WBC 10.6. Hemoglobin 15.6. Platelet count 298. Sodium 135. Potassium 4.4. BUN 97. Creatinine 2.64. Troponin negative x 1 - Current home cardiac medications include lisinopril 5 mg twice a day and Lipitor 40 mg at night - Most recent echocardiogram obtained in October 2022 ejection fraction 55 to 60%, mild MR, mild TR 10/09/2023 Patient examined this morning the bedside. Patient currently denies chest pain or pressure. He denies shortness of breath. Echocardiogram completed revealing ejection fraction 55 to 60%. Creatinine has improved today to 0.88. BUN remains elevated at 36. PHYSICAL EXAM: VITAL SIGNS: Reviewed. GENERAL: Well-developed in no acute distress. HEENT: Head is normocephalic. Pupils are equal, round. Sclerae anicteric. Mucous membranes of the mouth are moist. Neck supple. No JVD or thyromegaly LUNGS: Respirations even and unlabored. Lungs essentially clear to auscultation bilaterally. HEART: Regular rate and rhythm. S1 and S2 heard. ABDOMEN: Soft. Nondistended. Nontender. EXTREMITIES: Normal range of motion. No clubbing or cyanosis. Peripheral pulses intact. No lower extremity edema NEUROLOGIC: Awake and alert. Oriented x 3. ASSESSMENT: Syncope likely secondary to orthostatic hypotension and hypovolemia Abnormal EKG with T wave inversions inferiorly Acute kidney injury History of syncope Diabetes Hyperlipidemia Marijuana use PLAN: Continue IV fluids until discharge later today Continue current cardiac medications Will plan for outpatient stress testing Recommend abstinence from marijuana use Stable for discharge from a cardiac standpoint We will sign off. Please reconsult if needed. Nurse practitioner note has been reviewed by physician. Signing provider agrees with the documented findings, assessment, and plan of care documented by HOSE FINISHER as a scribe. Objective - Vital Signs Vital signs: Vital Signs Temp 97.7 F 10/09/23 08:00 Pulse 70 10/09/23 08:00 Resp 18 10/09/23 08:00 BP 108/55 10/09/23 08:00 Pulse Ox 96 10/09/23 09:04 FiO2 Intake & Output 10/08/23 10/09/23 10/09/23 18:59 06:59 18:59 Intake Total 226 1140 360 Balance 226 1140 360 Weight 77.111 kg Intake: Oral 226 1140 360 Other: # Voids 2 - Labs CBC & Chem 7: 10/07/23 22:02 10/09/23 08:08 Labs: Abnormal Lab Results - Last 24 Hours (Table) 10/09/23 Range/Units 08:08 Chloride 110 H (98-107) mmol/L BUN 36 H (9-20) mg/dL Glucose 143 H (74-99) mg/dL
== END 2023-10-09 13:34 | disposition home or self-care (01) ==
LOC: EC 21:42 → INTOOBSV 10-08 01:08 → 3SCARD 10-08 01:08 → UNDODISIN 10-09 13:34
PROVIDERS: ADMIT Internal Medicine; ATTEND Internal Medicine
DX: N17.9 Acute kidney failure, unspecified (principal); E86.0 Dehydration; T67.5XXA Heat exhaustion, unspecified, initial encounter; X30.XXXA Exposure to excessive natural heat, initial encounter; R55 Syncope and collapse; I10 Essential (primary) hypertension; E78.5 Hyperlipidemia, unspecified; F12.90 Cannabis use, unspecified, uncomplicated; R94.31 Abnormal electrocardiogram [ECG] [EKG]; E11.9 Type 2 diabetes mellitus without complications; S09.90XA Unspecified injury of head, initial encounter; W19.XXXA Unspecified fall, initial encounter; Z79.84 Long term (current) use of oral hypoglycemic drugs; Z79.899 Other long term (current) drug therapy; Z88.0 Allergy status to penicillin; Z11.52 Encounter for screening for COVID-19; Z11.59 Encounter for screening for other viral diseases
CPT/HCPCS: 96361 ×4; 96372 ×2; 96360; 99285; 51798; 36415; 94760; 93005; 93306; 80053; 80048 ×2; 82550; 83605; 83735; 84484 ×2; 85025; 85610; 85730; 81003; 87636; 71046; 70450; G0378 ×2; J1644 ×2